=== PATIENT | male | born 1975 | race Caucasian/White ===

== ENCOUNTER → 2017-01-24 | Outpatient (CLI) | payer MEDICARE, OTHER ==
[2017-01-24 15:10] LABS: Basophils # (A) 0.1 k/uL (0-0.2); Basophils % (A) 1 %; CH 30.3; Eosinophils # (A) 0.2 k/uL (0-0.7); Eosinophils % (A) 2 %; HCT 51.8 % (39.0-53.0); HDW 2.53; HGB 16.6 gm/dL (13.0-17.5); Luc # (Auto) 0.13; Luc % (Auto) 2; Lymphocytes % (A) 27 %; MCH 29.6 pg (25.0-35.0); MCHC 32.1 g/dL (31.0-37.0); MCV 92.3 fL (80.0-100.0); Mean Platelet Volume 7.1; Monocytes # (A) 0.4 k/uL (0-1.0); Monocytes % (A) 5 %; Neutrophils # (A) 4.7 k/uL (1.3-7.7); Neutrophils % (A) 64 %; RBC 5.61 m/uL (4.30-5.90); RDW 13.5 % (11.5-15.5); WBC 7.4 k/uL (3.8-10.6); WBC (Perox) 7.36
[2017-01-24 15:18] LABS: ALT 65 U/L (21-72); AST 37 U/L (17-59); Alkaline Phosphatase 66 U/L (38-126); Anion Gap 10 mmol/L; Blood Urea Nitrogen 10 mg/dL (9-20); Calcium 9.8 mg/dL (8.4-10.2); Carbon Dioxide 29 mmol/L (22-30); Chloride 101 mmol/L (98-107); Cholesterol 177 mg/dL (<200); Glucose 304 mg/dL (74-99); HDL Cholesterol 35 mg/dL (40-60); Non-African American GFR(MDRD) >60 (>60 ml/min/1.73 sqM); Potassium 4.8 mmol/L (3.5-5.1); Sodium 140 mmol/L (137-145); Total Bilirubin 0.8 mg/dL (0.2-1.3); Total Protein 7.4 g/dL (6.3-8.2); Triglycerides 200 mg/dL (<150)
[2017-01-24 19:49] LABS: Hemoglobin A1C 11.1 % (4.2-6.1)
== END | disposition home or self-care (01) ==
LOC: LABWHC1 14:31
PROVIDERS: ATTEND Family Medicine
DX: E78.5 Hyperlipidemia, unspecified (principal); I25.10 Atherosclerotic heart disease of native coronary artery without angina pectoris; E11.65 Type 2 diabetes mellitus with hyperglycemia
CPT/HCPCS: 36415; 80053; 80061; 83036; 84443; 85025

== ENCOUNTER → 2017-02-23 | Outpatient (CLI) | payer MEDICARE, OTHER ==
[2017-02-23 14:53] LABS: Anion Gap 11 mmol/L; Blood Urea Nitrogen 8 mg/dL (9-20); Calcium 9.7 mg/dL (8.4-10.2); Carbon Dioxide 23 mmol/L (22-30); Chloride 105 mmol/L (98-107); Glucose 316 mg/dL (74-99); Non-African American GFR(MDRD) >60 (>60 ml/min/1.73 sqM); Sodium 139 mmol/L (137-145)
[2017-02-23 15:04] LABS: Potassium 5.6 mmol/L (3.5-5.1)
== END | disposition home or self-care (01) ==
LOC: LABWHC1 14:05
PROVIDERS: ATTEND Internal Medicine
DX: I42.8 Other cardiomyopathies (principal); I50.9 Heart failure, unspecified
CPT/HCPCS: 36415; 80048; 83880

== ENCOUNTER → 2017-08-24 | Outpatient (CLI) | payer MEDICARE, OTHER ==
--- NOTE | 2017-08-24 13:39 | XR ---
EXAMINATION TYPE: XR chest 2V DATE OF EXAM: 08/24/2017 COMPARISON: Chest x-ray December 15, 2014 HISTORY: Cough for 6 weeks. TECHNIQUE: Frontal and lateral views of the chest are obtained. FINDINGS: There is no focal air space opacity, pleural effusion, or pneumothorax seen. The cardiac silhouette size is stable and upper limits of normal with single lead pacemaker/AICD. The osseous s tructures are intact. IMPRESSION: No suspicious acute pulmonary process. No significant change from prior.
== END | disposition home or self-care (01) ==
LOC: RADXRMAIN 13:16
PROVIDERS: ATTEND Family Medicine
DX: R05 Cough (principal)
CPT/HCPCS: 71020

== ENCOUNTER 2019-02-10 04:33 | Emergency (ER) | payer MEDICARE, OTHER ==
[2019-02-10 04:40] VITALS: TEMP 98.1
--- NOTE | 2019-02-10 05:03 | ED ---
URI HPI - General Chief Complaint: Upper Respiratory Infection Stated Complaint: cough, URI Time Seen by Provider: 02/10/19 04:47 Source: patient Mode of arrival: wheelchair Limitations: no limitations - History of Present Illness MD Complaint: cough, nasal congestion Onset/Timin -: days(s) Severity: moderate Consistency: constant Improves With: nothing Worsens With: nothing Associated Symptoms: rhinorrhea, nasal congestion, cough Treatments Prior to Arrival: none - Related Data Home Medications Medication Instructions Recorded Confirmed Aspirin 81 mg PO DAILY 12/15/14 12/15/14 Atorvastatin [Lipitor] 80 mg PO DAILY 12/15/14 02/10/19 INSULIN ASPART (NovoLOG) [NovoLOG] 10 unit SQ AC-TID 12/15/14 12/15/14 Insulin Detemir (Levemir) [Levemir] 35 unit SQ HS 12/15/14 12/15/14 Carvedilol [Coreg] 12.5 mg PO BID 02/10/19 02/10/19 Omeprazole 40 mg PO 02/10/19 Rivaroxaban [Xarelto] 20 mg PO DAILY 02/10/19 02/10/19 Spironolactone 50 mg PO 02/10/19 glipiZIDE [Glucotrol] 10 mg PO AC-BID 02/10/19 02/10/19 Previous Rx's Medication Instructions Recorded Albuterol Inhaler [Ventolin Hfa 1 - 2 puff INHALATION Q6HR PRN #1 02/10/19 Inhaler] inhaler Promethazine 6.25MG/5Ml [Phenergan 5 ml PO Q4HR PRN #120 ml 02/10/19 Syrup] Allergies Allergy/AdvReac Type Severity Reaction Status Date / Time amoxicillin Allergy Unknown Verified 12/15/14 11:28 Review of Systems ROS Statement: Those systems with pertinent positive or pertinent negative responses have been documented in the HPI. ROS Other: All systems not noted in ROS Statement are negative. Constitutional: Denies: fever, chills Respiratory: Reports: cough. Denies: dyspnea Cardiovascular: Denies: chest pain, palpitations, edema, syncope Gastrointestinal: Denies: abdominal pain, vomiting, diarrhea Genitourinary: Denies: dysuria Musculoskeletal: Denies: back pain Skin: Denies: rash Neurological: Denies: headache, weakness, numbness Past Medical History Past Medical History: Diabetes Mellitus, Hypertension, Myocardial Infarction ([place]) Last Myocardial Infarction Date:: 2012 History of Any Multi-Drug Resistant Organisms: None Reported Past Surgical History: AICD Additional Past Surgical History / Comment(s): AICD IMPLANTED DECEMBER/2013 AT [facility] Past Anesthesia/Blood Transfusion Reactions: No Reported Reaction Type of Cardiac Device: Permanent Pacemaker, AICD Device Placement Date:: 12/2013 Past Psychological History: No Psychological Hx Reported Smoking Status: Former smoker Past Alcohol Use History: Occasional Past Drug Use History: Marijuana General Exam Limitations: no limitations General appearance: alert, in no apparent distress Head exam: Present: atraumatic, normocephalic Eye exam: Present: normal appearance Respiratory exam: Present: normal lung sounds bilaterally. Absent: respiratory distress, wheezes, rales, rhonchi, stridor Cardiovascular Exam: Present: regular rate, normal rhythm, normal heart sounds. Absent: systolic murmur, diastolic murmur, rubs, gallop GI/Abdominal exam: Present: soft. Absent: distended, tenderness, guarding, rebound, rigid, mass Extremities exam: Present: normal inspection, normal capillary refill. Absent: pedal edema, calf tenderness Back exam: Present: normal inspection. Absent: CVA tenderness (R), CVA tenderness (L) Neurological exam: Present: alert Skin exam: Present: warm, dry, intact, normal color. Absent: rash Course Vital Signs 02/10/19 04:36 Temperature 98.1 F Pulse Rate 128 H Respiratory 22 Rate Blood Pressure 124/88 O2 Sat by Pulse 92 L Oximetry Medical Decision Making - Lab Data Result diagrams: 02/10/19 05:15 02/10/19 05:15 Lab Results 02/10/19 02/10/19 02/10/19 Range/Units 05:15 05:15 05:15 WBC 13.1 H (3.8-10.6) k/uL RBC 5.61 (4.30-5.90) m/uL Hgb 16.1 (13.0-17.5) gm/dL Hct 49.3 (39.0-53.0) % MCV 88.0 (80.0-100.0) fL MCH 28.7 (25.0-35.0) pg MCHC 32.6 (31.0-37.0) g/dL RDW 12.5 (11.5-15.5) % Plt Count 281 (150-450) k/uL Neutrophils % 73 % Lymphocytes % 14 % Monocytes % 7 % Eosinophils % 3 % Basophils % 1 % Neutrophils # 9.6 H (1.3-7.7) k/uL Lymphocytes # 1.8 (1.0-4.8) k/uL Monocytes # 1.0 (0-1.0) k/uL Eosinophils # 0.4 (0-0.7) k/uL Basophils # 0.1 (0-0.2) k/uL D-Dimer 0.19 (<0.60) mg/L FEU Sodium 134 L (137-145) mmol/L Potassium 4.0 (3.5-5.1) mmol/L Chloride 100 (98-107) mmol/L Carbon Dioxide 23 (22-30) mmol/L Anion Gap 11 mmol/L BUN 13 (9-20) mg/dL Creatinine 0.64 L (0.66-1.25) mg/dL Est GFR (CKD-EPI)AfAm >90 (>60 ml/min/1.73 sqM) Est GFR (CKD-EPI)NonAf >90 (>60 ml/min/1.73 sqM) Glucose 299 H (74-99) mg/dL POC Glucose (mg/dL) (75-99) mg/dL POC Glu Dispensary Attendant ID Calcium 9.6 (8.4-10.2) mg/dL Total Bilirubin 1.1 (0.2-1.3) mg/dL AST 18 (17-59) U/L ALT 30 (21-72) U/L Alkaline Phosphatase 80 (38-126) U/L NT-Pro-B Natriuret Pep pg/mL Total Protein 7.1 (6.3-8.2) g/dL Albumin 4.2 (3.5-5.0) g/dL 02/10/19 02/10/19 Range/Units 05:15 06:26 WBC (3.8-10.6) k/uL RBC (4.30-5.90) m/uL Hgb (13.0-17.5) gm/dL Hct (39.0-53.0) % MCV (80.0-100.0) fL MCH (25.0-35.0) pg MCHC (31.0-37.0) g/dL RDW (11.5-15.5) % Plt Count (150-450) k/uL Neutrophils % % Lymphocytes % % Monocytes % % Eosinophils % % Basophils % % Neutrophils # (1.3-7.7) k/uL Lymphocytes # (1.0-4.8) k/uL Monocytes # (0-1.0) k/uL Eosinophils # (0-0.7) k/uL Basophils # (0-0.2) k/uL D-Dimer (<0.60) mg/L FEU Sodium (137-145) mmol/L Potassium (3.5-5.1) mmol/L Chloride (98-107) mmol/L Carbon Dioxide (22-30) mmol/L Anion Gap mmol/L BUN (9-20) mg/dL Creatinine (0.66-1.25) mg/dL Est GFR (CKD-EPI)AfAm (>60 ml/min/1.73 sqM) Est GFR (CKD-EPI)NonAf (>60 ml/min/1.73 sqM) Glucose (74-99) mg/dL POC Glucose (mg/dL) 264 H (75-99) mg/dL POC Glu Dispensary Attendant ID Maury, Davina Calcium (8.4-10.2) mg/dL Total Bilirubin (0.2-1.3) mg/dL AST (17-59) U/L ALT (21-72) U/L Alkaline Phosphatase (38-126) U/L NT-Pro-B Natriuret Pep 281 pg/mL Total Protein (6.3-8.2) g/dL Albumin (3.5-5.0) g/dL Disposition Clinical Impression: Bronchitis Disposition: HOME SELF-CARE Condition: Fair Instructions (If sedation given, give patient instructions): Acute Bronchitis (ED) Prescriptions: Promethazine 6.25MG/5Ml [Phenergan Syrup] 5 ml PO Q4HR PRN #120 ml PRN Reason: Cough Albuterol Inhaler [Ventolin Hfa Inhaler] 1 - 2 puff INHALATION Q6HR PRN #1 inhaler PRN Reason: Wheezing Is patient prescribed a controlled substance at d/c from ED?: No Referrals: Macie Nelson MD [Primary Care Provider] - 1-2 days
--- NOTE | 2019-02-10 05:32 | XR ---
EXAM: XR Chest, 2 Views CLINICAL HISTORY: Pain TECHNIQUE: Frontal and lateral views of the chest. COMPARISON: Chest x-ray dated 08/24/2017 FINDINGS: Lungs: Unremarkable. No consolidation. Pleural space: Unremarkable. No pneumothorax. Heart: Unremarkable. No cardiomegaly. Mediastinum: Unremarkable. Bones/joints: Unremarkable. Tubes, lines and devices: Single lead cardiac pacemaker/AICD, which is unchanged. IMPRESSION: No acute findings.
[2019-02-10 05:36] LABS: Basophils # (A) 0.1 k/uL (0-0.2); Basophils % (A) 1 %; Eosinophils # (A) 0.4 k/uL (0-0.7); Eosinophils % (A) 3 %; HCT 49.3 % (39.0-53.0); HGB 16.1 gm/dL (13.0-17.5); Lymphocytes # (A) 1.8 k/uL (1.0-4.8); Lymphocytes % (A) 14 %; MCH 28.7 pg (25.0-35.0); MCHC 32.6 g/dL (31.0-37.0); Mean Platelet Volume 7.3; Monocytes % (A) 7 %; Neutrophils # (A) 9.6 k/uL (1.3-7.7); Neutrophils % (A) 73 %; Platelet Count 281 k/uL (150-450); RBC 5.61 m/uL (4.30-5.90); RDW 12.5 % (11.5-15.5); WBC 13.1 k/uL (3.8-10.6)
[2019-02-10 06:03] LABS: ALT 30 U/L (21-72); AST 18 U/L (17-59); Albumin 4.2 g/dL (3.5-5.0); Alkaline Phosphatase 80 U/L (38-126); Anion Gap 11 mmol/L; Blood Urea Nitrogen 13 mg/dL (9-20); Calcium 9.6 mg/dL (8.4-10.2); Carbon Dioxide 23 mmol/L (22-30); Chloride 100 mmol/L (98-107); Glucose 299 mg/dL (74-99); Sodium 134 mmol/L (137-145); Total Bilirubin 1.1 mg/dL (0.2-1.3); Total Protein 7.1 g/dL (6.3-8.2)
[2019-02-10] MEDS ORDERED: INSULIN REGULAR 100 UNIT/ML VIAL SQ STA (06:14)
[2019-02-10] MEDS ORDERED: ALBUTEROL NEBULIZED 2.5 MG/3 ML INHALATION STA (06:14)
[2019-02-10 06:28] LABS: Glucose,Whole Blood 264 mg/dL (75-99)
[2019-02-10 06:53] VITALS: BP 103/72; PULSE 109; RESP 22
== END 2019-02-10 06:52 | disposition home or self-care (01) ==
LOC: EC 04:33
DX: J40 Bronchitis, not specified as acute or chronic (principal); E11.9 Type 2 diabetes mellitus without complications; I10 Essential (primary) hypertension; I25.2 Old myocardial infarction; Z87.891 Personal history of nicotine dependence; Z79.82 Long term (current) use of aspirin; Z79.4 Long term (current) use of insulin; Z79.01 Long term (current) use of anticoagulants; Z79.899 Other long term (current) drug therapy; Z88.0 Allergy status to penicillin; Z95.810 Presence of automatic (implantable) cardiac defibrillator
CPT/HCPCS: 36415; 71046; 80053; 83880; 85025; 85379; 99284

== ENCOUNTER → 2019-08-21 | Outpatient (CLI) | payer MEDICARE, OTHER ==
[2019-08-21 11:16] LABS: Basophils # (A) 0.1 k/uL (0-0.2); Basophils % (A) 2 %; Eosinophils # (A) 0.2 k/uL (0-0.7); Eosinophils % (A) 3 %; HCT 47.5 % (39.0-53.0); HGB 16.8 gm/dL (13.0-17.5); Lymphocytes # (A) 1.4 k/uL (1.0-4.8); Lymphocytes % (A) 19 %; MCH 32.4 pg (25.0-35.0); MCHC 35.3 g/dL (31.0-37.0); MCV 91.7 fL (80.0-100.0); Mean Platelet Volume 7.3; Monocytes # (A) 0.4 k/uL (0-1.0); Monocytes % (A) 6 %; Neutrophils % (A) 69 %; Platelet Count 246 k/uL (150-450); RBC 5.18 m/uL (4.30-5.90); RDW 12.1 % (11.5-15.5); WBC 7.3 k/uL (3.8-10.6)
[2019-08-21 16:20] LABS: African American GFR (CKD) 121.7 (60.0-200.0); Albumin 4.6 g/dL (3.80-4.90); Albumin/Globulin Ratio 2.19 (1.60-3.17); Anion Gap 10.6 mmol/L (4.00-12.00); BUN/Creat Ratio 16.67 Ratio (12.00-20.00); Carbon Dioxide 27.4 mmol/L (21.6-31.8); Chol/HDL Ratio 4.19; Globulin 2.1 g/dL (1.6-3.3); LDL Cholesterol,Calculated 62.8 mg/dL (0.0-131.0); Potassium 4.9 mmol/L (3.5-5.5); Total Bilirubin 0.6 mg/dL (0.2-1.2); Total Protein 6.7 g/dL (6.2-8.2); VLDL Calculation 23.2 mg/dL (5.00-40.00)
[2019-08-21 18:50] LABS: Hemoglobin A1C 13.1 % (4.0-6.0)
== END | disposition home or self-care (01) ==
LOC: LABWHC1 10:04
PROVIDERS: ATTEND Family Medicine
DX: E11.65 Type 2 diabetes mellitus with hyperglycemia (principal); I50.9 Heart failure, unspecified; E66.9 Obesity, unspecified
CPT/HCPCS: 36415; 80053; 80061; 82043; 82306; 82570; 83036; 84443; 85025

== ENCOUNTER → 2019-12-06 | Outpatient (CLI) | payer MEDICARE, OTHER ==
--- NOTE | 2019-12-06 09:49 | US ---
EXAMINATION TYPE: US abdomen complete DATE OF EXAM: 12/06/2019 COMPARISON: CT CLINICAL HISTORY: R11.2 nausea and vomiting. GERD, Leiden Factor V, intermittent nausea and vomiting with heartburn, on multiple medications for heart failure per patient; takes blood thinner too. EXAM MEASUREMENTS: Liver Length: 14.2 cm Gallbladder Wall: 0.2 cm CBD: 0.3 cm Spleen: 11.4 cm Right Kidney: 10.5 x 6.5 x 5.2 cm Left Kidney: 10.8 x 5.2 x 5.8 cm Pancreas: wnl is visualized Liver: There is increased echogenicity of the hepatic parenchyma with diminished visualization of th e portal triads most commonly relating to hepatic steatosis and limiting evaluation for underlying he patic masses. Gallbladder: wnl Evidence for sonographic Yen's sign: no CBD: wnl Spleen: wnl Right Kidney: No hydronephrosis or masses seen Left Kidney: No hydronephrosis or masses seen Upper IVC: wnl Abd Aorta: wnl IMPRESSION: 1. Sonographic findings most commonly related to hepatic steatosis. Correlate with liver function cassandra ts. 2. No sonographic evidence of cholelithiasis nor acute cholecystitis.
== END | disposition home or self-care (01) ==
LOC: RADUSMAIN 07:55
PROVIDERS: ATTEND Family Medicine
DX: R11.2 Nausea with vomiting, unspecified (principal)
CPT/HCPCS: 76700

== ENCOUNTER → 2020-12-26 | Outpatient (CLI) | payer MEDICARE, OTHER | END | disposition home or self-care (01) | LOC: LABWHC1 14:20 | PROVIDERS: ATTEND Family Medicine | DX: J06.9 Acute upper respiratory infection, unspecified (principal); R05 Cough | CPT/HCPCS: U0003; C9803; U0005 ==

== ENCOUNTER 2021-06-12 10:57 | Emergency (ER) | payer MEDICARE, OTHER ==
[2021-06-12 11:20] VITALS: RESP 18
[2021-06-12] MEDS ORDERED: IBUPROFEN 600 MG TAB PO STA (11:31)
--- NOTE | 2021-06-12 11:48 | ED ---
Lower Extremity Injury HPI - General Chief Complaint: Extremity Injury, Lower Stated Complaint: lt foot injury Time Seen by Provider: 06/12/21 11:24 Source: patient Mode of arrival: wheelchair Limitations: physical limitation - History of Present Illness Initial Comments: 45-year-old male presents to emergency department with a chief complaint of left ankle injury. Status occurred about one hour prior to arrival. Patient reports he was getting out of his car when he felt sudden onset of pain in the lateral malleolus of the left ankle after he suffered an inversion injury. Patient reports pain is exacerbated with weightbearing and any movement. Reports mild swelling on the left lateral malleolus but no ecchymosis or erythema at this time. Denies taking medication to leaving the symptoms. Denies any paresthesias or weakness. - Related Data Home Medications Medication Instructions Recorded Confirmed Aspirin 81 mg PO DAILY 12/15/14 12/15/14 Atorvastatin [Lipitor] 80 mg PO DAILY 12/15/14 02/10/19 INSULIN ASPART (NovoLOG) [NovoLOG] 10 unit SQ AC-TID 12/15/14 12/15/14 Insulin Detemir (Levemir) [Levemir] 35 unit SQ HS 12/15/14 12/15/14 Omeprazole 40 mg PO 02/10/19 Rivaroxaban [Xarelto] 20 mg PO DAILY 02/10/19 02/10/19 Spironolactone 50 mg PO 02/10/19 carvediloL [Coreg] 12.5 mg PO BID 02/10/19 02/10/19 glipiZIDE [Glucotrol] 10 mg PO AC-BID 02/10/19 02/10/19 Previous Rx's Medication Instructions Recorded Albuterol Inhaler (Mhu) [Ventolin 1 - 2 puff INHALATION Q6HR PRN #1 02/10/19 Hfa Inhaler (Mhu)] inhaler Promethazine 6.25MG/5Ml [Phenergan 5 ml PO Q4HR PRN #120 ml 02/10/19 Syrup] Allergies Allergy/AdvReac Type Severity Reaction Status Date / Time amoxicillin Allergy Unknown Verified 06/12/21 11:18 Review of Systems ROS Statement: Those systems with pertinent positive or pertinent negative responses have been documented in the HPI. ROS Other: All systems not noted in ROS Statement are negative. Past Medical History Past Medical History: Diabetes Mellitus, Hypertension, Myocardial Infarction ([place]) Last Myocardial Infarction Date:: 2012 History of Any Multi-Drug Resistant Organisms: None Reported Past Surgical History: AICD Additional Past Surgical History / Comment(s): AICD IMPLANTED DECEMBER/2013 AT [facility] Past Anesthesia/Blood Transfusion Reactions: No Reported Reaction Type of Cardiac Device: Permanent Pacemaker, AICD Device Placement Date:: 12/2013 Past Psychological History: No Psychological Hx Reported Smoking Status: Never smoker Past Alcohol Use History: Rare Past Drug Use History: Marijuana General Exam Limitations: physical limitation General appearance: alert, in no apparent distress Head exam: Present: atraumatic, normocephalic, normal inspection Eye exam: Present: normal appearance, PERRL Pupils: Present: normal accommodation ENT exam: Present: normal exam, normal oropharynx, mucous membranes moist Neck exam: Present: normal inspection, full ROM. Absent: tenderness Respiratory exam: Present: normal lung sounds bilaterally. Absent: respiratory distress Cardiovascular Exam: Present: regular rate, normal rhythm, normal heart sounds. Absent: systolic murmur GI/Abdominal exam: Present: soft. Absent: distended, tenderness, guarding, rebound Extremities exam: Present: tenderness (Left lateral malleolus tenderness. fifth metatarsal tenderness ), normal capillary refill, other (Palpable DP and PT bilaterally. Sensation intact in the left foot). Absent: normal inspection (Mild swelling along the left lateral malleolus), full ROM (Limited range of motion with inversion and eversion.), pedal edema, joint swelling, calf tenderness Back exam: Present: normal inspection, full ROM. Absent: tenderness Neurological exam: Present: alert, oriented X3 Psychiatric exam: Present: normal affect, normal mood Skin exam: Present: warm, dry, intact, normal color Course Vital Signs 06/12/21 11:18 Temperature 98 F Pulse Rate 99 Respiratory 18 Rate Blood Pressure 123/88 O2 Sat by Pulse 96 Oximetry Medical Decision Making - Medical Decision Making 45-year-old male presenting to the emergency department with chief complaint of left foot injury. On physical cavitation, patient has fifth metatarsal tenderness. Left lateral malleolus tenderness as well. He is otherwise neurovascularly intact. He requested ibuprofen for analgesia. He was given 600 mg. X-ray shows a mildly displaced, acute fracture of the fifth metatarsal. A posterior splint was applied with extra padding on the foot. Patient was given a prescription for crutches. He was given Tylenol 3 starter pack to go home with. They will follow-up with the clinical rehabilitation specialist. Patient was advised to avoid any weightbearing. Return parameters were thoroughly discussed the patient was understanding and agreeable. Disposition Clinical Impression: Fracture of fifth metatarsal bone of left foot Disposition: HOME SELF-CARE Condition: Stable Instructions (If sedation given, give patient instructions): Foot Fracture in Adults (ED) Additional Instructions: Follow-up with clinical rehabilitation specialist. Return to emergency department if symptoms worsen. Is patient prescribed a controlled substance at d/c from ED?: No Referrals: Ben Beltran [Primary Care Provider] - 1-2 days Dejan Castorena DO [Doctor of Osteopathic Medicine] - 1-2 days Time of Disposition: 12:49
--- NOTE | 2021-06-12 12:14 | XR ---
EXAMINATION TYPE: XR foot complete LT DATE OF EXAM: 06/12/2021 COMPARISON: NONE HISTORY: Pain TECHNIQUE: Three views are submitted. FINDINGS: The osseous structures are intact. There is a displaced fracture involving the base of the fifth m etatarsal. Hypertrophic arthropathy of the first MTP. Calcaneal spur noted. Sclerotic density in the calcaneus compatible with bone island. IMPRESSION: 1. Acute mildly displaced fracture base fifth metatarsal.
--- NOTE | 2021-06-12 12:17 | XR ---
EXAMINATION TYPE: XR ankle complete LT DATE OF EXAM: 06/12/2021 COMPARISON: NONE HISTORY: Pain FINDINGS: Three views of the ankle demonstrate a displaced fracture involving the base of the fifth metatarsal. Hypertrophic arthropathy of the first MTP. Calcaneal spur noted. Sclerotic density in the calcaneus compatible with bone island. IMPRESSION: 1. Acute mildly displaced fracture base fifth metatarsal.
[2021-06-12] MEDS ORDERED: ACET/COD 300 MG/30 MG STARTER PACK 6 TAB BTL PO STA (12:45)
[2021-06-12 13:00] VITALS: BP 132/84; PULSE 88; TEMP 97.9
== END 2021-06-12 13:00 | disposition home or self-care (01) ==
LOC: EC 10:57
DX: S92.352A Displaced fracture of fifth metatarsal bone, left foot, initial encounter for closed fracture (principal); E11.9 Type 2 diabetes mellitus without complications; I10 Essential (primary) hypertension; I25.2 Old myocardial infarction; Z79.4 Long term (current) use of insulin; Z79.899 Other long term (current) drug therapy; Z88.0 Allergy status to penicillin; X50.9XXA Other and unspecified overexertion or strenuous movements or postures, initial encounter
CPT/HCPCS: 29515; 99283

== ENCOUNTER 2021-12-20 00:20 | Inpatient (IN) | payer MEDICARE, OTHER ==
[2021-12-20] MEDS ORDERED: SODIUM CHLORIDE 0.9% 1,000 ML IV STA (01:39)
[2021-12-20] MEDS ORDERED: LEVOFLOXACIN 750MG-D5W PMX 750 MG in DEXTROSE/WATER 1 150ML.BAG IVPB STA (01:39)
--- NOTE | 2021-12-20 01:46 | ED ---
Male Urogenital HPI - General Chief complaint: Urogenital Stated complaint: Rectal Pain Time Seen by Provider: 12/20/21 00:53 Source: patient, family, RN notes reviewed Mode of arrival: ambulatory Limitations: no limitations - History of Present Illness Initial comments: This is a 46-year-old diabetic male who presents to emergency department complaining of one week of rectal pain and discomfort after urination. Patient states that this seems to be getting worse. He denies any known fever but is found to be tachycardic in triage. Denies any abdominal pain but does have some suprapubic discomfort after urination. Patient denies any diarrhea or constipation. No rectal bleeding. No nausea or vomiting. No skin rashes or lesions. No testicular pain. No penile discharge. No hematuria. No headache, no fever or chills, no changes in vision or hearing, no sore throat or difficulty with speech, no neck pain, no chest pain or shortness of breath, no numbness or tingling, no extremity pain, no skin rashes or lesions. MD Complaint: dysuria - Related Data Home Medications Medication Instructions Recorded Confirmed Aspirin 81 mg PO DAILY 12/15/14 12/15/14 Atorvastatin [Lipitor] 80 mg PO DAILY 12/15/14 02/10/19 INSULIN ASPART (NovoLOG) [NovoLOG] 10 unit SQ AC-TID 12/15/14 12/15/14 Insulin Detemir (Levemir) [Levemir] 35 unit SQ HS 12/15/14 12/15/14 Omeprazole 40 mg PO 02/10/19 Rivaroxaban [Xarelto] 20 mg PO DAILY 02/10/19 02/10/19 Spironolactone 50 mg PO 02/10/19 carvediloL [Coreg] 12.5 mg PO BID 02/10/19 02/10/19 glipiZIDE [Glucotrol] 10 mg PO AC-BID 02/10/19 02/10/19 Previous Rx's Medication Instructions Recorded Albuterol Inhaler (Mhu) [Ventolin 1 - 2 puff INHALATION Q6HR PRN #1 02/10/19 Hfa Inhaler (Mhu)] inhaler Promethazine 6.25MG/5Ml [Phenergan 5 ml PO Q4HR PRN #120 ml 02/10/19 Syrup] Allergies Allergy/AdvReac Type Severity Reaction Status Date / Time amoxicillin Allergy Unknown Verified 06/12/21 11:18 Review of Systems ROS Statement: Those systems with pertinent positive or pertinent negative responses have been documented in the HPI. ROS Other: All systems not noted in ROS Statement are negative. Past Medical History Past Medical History: Diabetes Mellitus, Hypertension, Myocardial Infarction ([place]) Last Myocardial Infarction Date:: 2012 History of Any Multi-Drug Resistant Organisms: None Reported Past Surgical History: AICD Additional Past Surgical History / Comment(s): AICD IMPLANTED DECEMBER/2013 AT [facility] Past Anesthesia/Blood Transfusion Reactions: No Reported Reaction Type of Cardiac Device: Permanent Pacemaker, AICD Device Placement Date:: 12/2013 Past Psychological History: No Psychological Hx Reported Smoking Status: Former smoker Past Alcohol Use History: Rare Past Drug Use History: Marijuana General Exam - General Exam Comments Initial Comments: Vital signs noted, patient noted to be tachycardic with a heart rate of 111 triage and 108 on my recheck. Limitations: no limitations General appearance: alert, in distress (Mild distress) Head exam: Present: atraumatic, normocephalic, normal inspection Eye exam: Present: normal appearance, PERRL, EOMI. Absent: scleral icterus, conjunctival injection, periorbital swelling ENT exam: Present: normal exam, mucous membranes moist Neck exam: Present: normal inspection. Absent: tenderness, meningismus, lymphadenopathy Respiratory exam: Present: normal lung sounds bilaterally. Absent: respiratory distress, wheezes, rales, rhonchi, stridor Cardiovascular Exam: Present: normal rhythm, bradycardia, normal heart sounds. Absent: systolic murmur, diastolic murmur, rubs, gallop, clicks GI/Abdominal exam: Present: soft, normal bowel sounds. Absent: distended, tenderness, guarding, rebound, rigid Rectal exam: Present: normal inspection, normal rectal tone, tenderness, prostate tenderness, other (Patient does have perineal tenderness as well. No evidence of perirectal abscess or hemorrhoids.) exam: Present: normal inspection, circumcision. Absent: testicular tenderness, urethral discharge, scrotal swelling Extremities exam: Present: normal inspection, full ROM, normal capillary refill. Absent: tenderness, pedal edema, joint swelling, calf tenderness Back exam: Present: normal inspection Neurological exam: Present: alert, oriented X3, CN II-XII intact Psychiatric exam: Present: normal affect, normal mood Skin exam: Present: warm, dry, intact, normal color. Absent: rash Course Vital Signs 12/20/21 00:22 Temperature 97.8 F Pulse Rate 111 H Respiratory 20 Rate Blood Pressure 127/85 O2 Sat by Pulse 96 Oximetry - Reevaluation(s) Reevaluation #1: 12/20/21 02:46 Medical record is reviewed Symptoms are essentially unchanged. Patient blood pressure is normal. Awaiting CT results. Patient does meet criteria for sepsis for tachycardia and leukocytosis. Patient is informed of results and questions answered Patient in no distress Reevaluation #2: 12/20/21 02:47 Patient's blood sugar is 300. We will order a second fluid bolus. Procedures - Sepsis Sepsis Focused Exam #1 Time Sepsis Criteria Met: 03:30 Sepsis Focused Exam Complete: Yes Vital Signs & RN Notes Reviewed: Yes Capillary Refill: None: Fingers, Toes Peripheral Pulses: Absent: Radial (R), Radial (L), Posterior Tibialis (R), Posterior Tibialis (L), Dorsalis Pedis (R), Dorsalis Pedis (L) Skin Color: Normal for Patient Respiratory Exam: normal lung sounds Cardiovascular Exam: tachycardia Medical Decision Making - Medical Decision Making Patient is a known diabetic. Patient presents with rectal pain and postvoiding discomfort for one week. Tachycardia with no known fever. Patient indicates to me that since COVID-19 his pain less attention to his personal health. Urinalysis, gonorrhea, chlamydia testing are pending at the time of admission. Patient reevaluated prior to admission and is complaining of 8 out of 10 pain. Pain medication ordered. Metronidazole added onto the levofloxacin. - Lab Data Result diagrams: 12/20/21 02:09 12/20/21 02:09 Lab Results 12/20/21 12/20/21 12/20/21 Range/Units 02:09 02:09 02:09 WBC 13.2 H (3.8-10.6) k/uL RBC 4.93 (4.30-5.90) m/uL Hgb 14.7 (13.0-17.5) gm/dL Hct 44.7 (39.0-53.0) % MCV 90.6 (80.0-100.0) fL MCH 29.8 (25.0-35.0) pg MCHC 32.9 (31.0-37.0) g/dL RDW 12.7 (11.5-15.5) % Plt Count 321 (150-450) k/uL MPV 7.9 Neutrophils % 72 % Lymphocytes % 18 % Monocytes % 6 % Eosinophils % 2 % Basophils % 1 % Neutrophils # 9.6 H (1.3-7.7) k/uL Lymphocytes # 2.4 (1.0-4.8) k/uL Monocytes # 0.8 (0-1.0) k/uL Eosinophils # 0.3 (0-0.7) k/uL Basophils # 0.1 (0-0.2) k/uL Sodium 132 L (137-145) mmol/L Potassium 4.3 (3.5-5.1) mmol/L Chloride 95 L (98-107) mmol/L Carbon Dioxide 27 (22-30) mmol/L Anion Gap 10 mmol/L BUN 16 (9-20) mg/dL Creatinine 0.83 (0.66-1.25) mg/dL Est GFR (CKD-EPI)AfAm >90 (>60 ml/min/1.73 sqM) Est GFR (CKD-EPI)NonAf >90 (>60 ml/min/1.73 sqM) Glucose 343 H (74-99) mg/dL POC Glucose (mg/dL) (75-99) mg/dL POC Glu Nicker And Breaker ID Plasma Lactic Acid Ben 1.4 (0.7-2.0) mmol/L Calcium 9.1 (8.4-10.2) mg/dL Total Bilirubin 0.7 (0.2-1.3) mg/dL AST 14 L (17-59) U/L ALT 15 (4-49) U/L Alkaline Phosphatase 70 (38-126) U/L C-Reactive Protein 1.4 H (<1.0) mg/dL Total Protein 7.1 (6.3-8.2) g/dL Albumin 4.0 (3.5-5.0) g/dL Urine Color Urine Appearance (Clear) Urine pH (5.0-8.0) Ur Specific [place] (1.001-1.035) Urine Protein (Negative) Urine Glucose (UA) (Negative) Urine Ketones (Negative) Urine Blood (Negative) Urine Nitrite (Negative) Urine Bilirubin (Negative) Urine Urobilinogen (<2.0) mg/dL Ur Leukocyte Esterase (Negative) 12/20/21 12/20/21 Range/Units 02:14 02:58 WBC (3.8-10.6) k/uL RBC (4.30-5.90) m/uL Hgb (13.0-17.5) gm/dL Hct (39.0-53.0) % MCV (80.0-100.0) fL MCH (25.0-35.0) pg MCHC (31.0-37.0) g/dL RDW (11.5-15.5) % Plt Count (150-450) k/uL MPV Neutrophils % % Lymphocytes % % Monocytes % % Eosinophils % % Basophils % % Neutrophils # (1.3-7.7) k/uL Lymphocytes # (1.0-4.8) k/uL Monocytes # (0-1.0) k/uL Eosinophils # (0-0.7) k/uL Basophils # (0-0.2) k/uL Sodium (137-145) mmol/L Potassium (3.5-5.1) mmol/L Chloride (98-107) mmol/L Carbon Dioxide (22-30) mmol/L Anion Gap mmol/L BUN (9-20) mg/dL Creatinine (0.66-1.25) mg/dL Est GFR (CKD-EPI)AfAm (>60 ml/min/1.73 sqM) Est GFR (CKD-EPI)NonAf (>60 ml/min/1.73 sqM) Glucose (74-99) mg/dL POC Glucose (mg/dL) 315 H (75-99) mg/dL POC Glu Nicker And Breaker Prashanth Kelsey Plasma Lactic Acid Ben (0.7-2.0) mmol/L Calcium (8.4-10.2) mg/dL Total Bilirubin (0.2-1.3) mg/dL AST (17-59) U/L ALT (4-49) U/L Alkaline Phosphatase (38-126) U/L C-Reactive Protein (<1.0) mg/dL Total Protein (6.3-8.2) g/dL Albumin (3.5-5.0) g/dL Urine Color Yellow Urine Appearance Clear (Clear) Urine pH 6.0 (5.0-8.0) Ur Specific [place] 1.026 (1.001-1.035) Urine Protein Negative (Negative) Urine Glucose (UA) 4+ H (Negative) Urine Ketones Trace H (Negative) Urine Blood Negative (Negative) Urine Nitrite Negative (Negative) Urine Bilirubin Negative (Negative) Urine Urobilinogen <2.0 (<2.0) mg/dL Ur Leukocyte Esterase Negative (Negative) Critical Care Time Critical Care Time: Yes (Reevaluation of the patient's response to treatment. Reevaluation after fl) Total Critical Care Time: 35 Critical Care Time: 35 Disposition Clinical Impression: Prostate abscess, Sepsis, Uncontrolled diabetes mellitus Disposition: ADMITTED IP TO THIS HOSP Condition: Fair Referrals: Ben Beltran [Primary Care Provider] - 1-2 days Time of Disposition: 03:37 Decision to Admit Reason: Admit from EC Decision Time: 03:37
[2021-12-20 02:16] LABS: Glucose,Whole Blood 315 mg/dL (75-99)
[2021-12-20 02:27] LABS: Basophils # (A) 0.1 k/uL (0-0.2); Basophils % (A) 1 %; Eosinophils # (A) 0.3 k/uL (0-0.7); Eosinophils % (A) 2 %; HCT 44.7 % (39.0-53.0); HGB 14.7 gm/dL (13.0-17.5); Lymphocytes # (A) 2.4 k/uL (1.0-4.8); Lymphocytes % (A) 18 %; MCH 29.8 pg (25.0-35.0); MCHC 32.9 g/dL (31.0-37.0); MCV 90.6 fL (80.0-100.0); Mean Platelet Volume 7.9; Monocytes # (A) 0.8 k/uL (0-1.0); Monocytes % (A) 6 %; Neutrophils # (A) 9.6 k/uL (1.3-7.7); Neutrophils % (A) 72 %; Platelet Count 321 k/uL (150-450); RBC 4.93 m/uL (4.30-5.90); RDW 12.7 % (11.5-15.5); WBC 13.2 k/uL (3.8-10.6)
[2021-12-20 02:28] LABS: ALT 15 U/L (4-49); AST 14 U/L (17-59); African American GFR (CKD) >90 (>60 ml/min/1.73 sqM); Alkaline Phosphatase 70 U/L (38-126); Anion Gap 10 mmol/L; Blood Urea Nitrogen 16 mg/dL (9-20); C Reactive Protein 1.4 mg/dL (<1.0); Calcium 9.1 mg/dL (8.4-10.2); Carbon Dioxide 27 mmol/L (22-30); Chloride 95 mmol/L (98-107); Glucose 343 mg/dL (74-99); Non-African American GFR(CKD) >90 (>60 ml/min/1.73 sqM); Potassium 4.3 mmol/L (3.5-5.1); Sodium 132 mmol/L (137-145); Total Bilirubin 0.7 mg/dL (0.2-1.3); Total Protein 7.1 g/dL (6.3-8.2)
[2021-12-20] MEDS ORDERED: SODIUM CHLORIDE 0.9% 1,000 ML IV ONE (02:46)
[2021-12-20 03:10] LABS: Appearance,Urine Clear (Clear); Bilirubin,Urine Negative (Negative); Blood,Urine Negative (Negative); Color,Urine Yellow; Glucose,Urine (UA) 4+ (Negative); Ketones,Urine Trace (Negative); Leukocyte Esterase,Urine Negative (Negative); Nitrite,Urine Negative (Negative); Protein,Urine Negative (Negative); Specific Gravity,Urine 1.026 (1.001-1.035); Urobilinogen,Urine <2.0 mg/dL (<2.0)
--- NOTE | 2021-12-20 03:25 | CT ---
EXAMINATION TYPE: CT abdomen pelvis w con DATE OF EXAM: 12/20/2021 COMPARISON: 11/11/2010 HISTORY: rectal pain. no prior CT on PACS CT DLP: 1814.8 mGycm Automated exposure control for dose reduction was used. CONTRAST: Performed with IV Contrast, patient injected with 100ml mL of Isovue 300. Images obtained from the diaphragm to the floor of the pelvis with IV contrast. Lung bases are clear of infiltrate. There is no pleural effusion. Heart size is normal. There is no p ericardial effusion. Liver spleen and stomach pancreas and gallbladder appear intact. The bile ducts are not dilated. There is no adrenal mass. Kidneys show satisfactory contrast opacification. There is no hydronephrosi s. Ureters are not dilated. There is no retroperitoneal adenopathy. Delayed images show normal renal excretion. Bladder distends smoothly. There is no inguinal hernia. There is no free fluid in the pelv is. There is some 2 cm area of low attenuation at the base of the prostate gland in the posterior ure thral region. This appears somewhat cystic. Appendix is posterior and appears normal. There is no mesenteric edema. There is no ascites or free a ir. No evidence of a bowel obstruction. The lumbar vertebra show normal alignment. There is calcified posterior disc herniation at L5-S1. No lumbar compression fracture. Bony pelvis is intact. Hip joints are intact. IMPRESSION: Possible cystic mass at the base of the prostate gland in the region of posterior urethra. Consider u nusual prostatic cyst or urethral diverticulum. This is a change compared to old exam. Normal appendix.
[2021-12-20] MEDS ORDERED: metroNIDAZOLE-NS PMX 500 MG in SALINE 1 100ML.BAG IVPB STA (03:27)
[2021-12-20] MEDS ORDERED: HYDROmorphone 1 MG/ML 1 ML SYRINGE IVP STA (03:36)
[2021-12-20] MEDS ORDERED: ONDANSETRON 4 MG/2 ML VIAL IVP STA (03:36)
[2021-12-20] MEDS ORDERED: NALOXONE 0.4 MG/ML 1 ML VIAL IV PRN (03:38)
[2021-12-20] MEDS ORDERED: ACETAMINOPHEN TAB 325 MG TAB PO PRN (03:38)
[2021-12-20] MEDS ORDERED: HYDROmorphone 0.5 MG/0.5 ML SYRINGE IVP PRN (03:38)
[2021-12-20] MEDS ORDERED: ONDANSETRON 4 MG/2 ML VIAL IVP PRN (03:38)
[2021-12-20] MEDS: SODIUM CHLORIDE 0.9% 1,000 ML IV SCH ×3 (04:00→17:36)
--- NOTE | 2021-12-20 04:05 | P.HPIM ---
History of Present Illness H&P Date: 12/20/21 The patient is a 46-year-old male with a PMH of coronary artery disease status post ID, systolic CHF with EF less than 15% status post AICD placement, type II DM, hypertension, and hyperlipidemia who presents to the emergency room with complaints of dysuria and pelvic pain. The patient reports mid and and end stream dysuria along with pelvic pain worsened with sitting, that has gradually worsened over the past 1 week. He denies any history of such symptoms. Reports a remote history of single episode of UTI in his teenage years. Denied history of STI's. Denied instrumentation of his system. Reports pain is 7 out of 10 at the time of interview. Denied penile discharge. Denied fever, chills, abdominal pain, diarrhea. Also denied chest pain, shortness of breath, nausea, vomiting. Vitals upon presentation were notable for pulse of 111. CT abdomen and pelvis revealed a possible cystic mass at the base of the prostate gland in the region of the posterior urethra. Laboratory evaluation was remarkable for leukocytosis of 13.2, sodium 132, chloride 95, glucose 343, lactic acid 1.4, and UA remarkable for 4+ glucose and trace ketones. Review of systems: Pertinent positives and negatives as discussed in HPI, a complete review of systems was performed and all other systems are negative. Physical examination: General: non toxic, no distress, appears at stated age, obese Derm: no unusual rashes/lesions no unusual ecchymoses, warm, dry Head: atraumatic, normocephalic, symmetric Eyes: EOMI, no lid lag, anicteric sclera, pupils equal round reactive to light ENT: Nose and ears atraumatic, no thrush, no pharyngeal erythema Neck: No thyromegaly, no cervical lymphadenopathy, trachea midline, supple Mouth: no lip lesion, mucus membranes moist Cardiovascular: S1S2 reg, no murmur, positive posterior tibial pulse bilateral, no edema, capillary refill less than 2 seconds Lungs: CTA bilateral, no rhonchi, no rales , no accessory muscle use Abdominal: soft, nontender to palpation, no guarding, no appreciable organomegaly, normal bowel sounds Ext: no gross muscle atrophy, muscle strength 5 out of 5 in all 4 extremities grossly, no contractures, Neuro: CN II-XI grossly intact, light touch intact all 4 extremities, finger to nose within normal limits, Psych: Alert, oriented, appropriate affect : No penile or scrotal rashes or overlying skin abnormalities noted Assessment/plan Sepsis secondary to acute prostatitis, possible abscess -Continue with IV antibiotics with Levaquin and Flagyl for now -Urology consult -IV fluids -Pain control Uncontrolled type II DM with hyperglycemia -Check A1c -Insulin sliding scale blood glucose monitoring -Levemir 10 units daily at bedtime Hyponatremia, likely syndrome in setting of hyperglycemia -Continue with above management Chronic conditions: CAD, chronic CHF, hypertension, hyperlipidemia -Continue with home meds DVT prophylaxis -Heparin The patient is admitted with an anticipated greater than 2 midnight stay for evaluation of sepsis secondary to prostatitis. CODE STATUS: Full Code Discussed with: Patient Anticipated discharge date: 12/[address]: Home Past Medical History Past Medical History: Diabetes Mellitus, Hypertension, Myocardial Infarction (ID) Last Myocardial Infarction Date:: 2012 History of Any Multi-Drug Resistant Organisms: None Reported Past Surgical History: AICD Additional Past Surgical History / Comment(s): AICD IMPLANTED DECEMBER/2013 AT [facility] Past Anesthesia/Blood Transfusion Reactions: No Reported Reaction Type of Cardiac Device: Permanent Pacemaker, AICD Device Placement Date:: 12/2013 Past Psychological History: No Psychological Hx Reported Smoking Status: Former smoker Past Alcohol Use History: Rare Past Drug Use History: Marijuana - Past Family History Father Additional Family Medical History / Comment(s): BPH Medications and Allergies Home Medications Medication Instructions Recorded Confirmed Type Aspirin 81 mg PO DAILY 12/15/14 12/15/14 History Atorvastatin [Lipitor] 80 mg PO DAILY 12/15/14 02/10/19 History INSULIN ASPART (NovoLOG) [NovoLOG] 10 unit SQ AC-TID 12/15/14 12/15/14 History Insulin Detemir (Levemir) [Levemir] 35 unit SQ HS 12/15/14 12/15/14 History Albuterol Inhaler (Mhu) [Ventolin 1 - 2 puff INHALATION Q6HR PRN #1 02/10/19 Rx Hfa Inhaler (Mhu)] inhaler Omeprazole 40 mg PO 02/10/19 History Promethazine 6.25MG/5Ml [Phenergan 5 ml PO Q4HR PRN #120 ml 02/10/19 Rx Syrup] Rivaroxaban [Xarelto] 20 mg PO DAILY 02/10/19 02/10/19 History Spironolactone 50 mg PO 02/10/19 History carvediloL [Coreg] 12.5 mg PO BID 02/10/19 02/10/19 History glipiZIDE [Glucotrol] 10 mg PO AC-BID 02/10/19 02/10/19 History Allergies Allergy/AdvReac Type Severity Reaction Status Date / Time amoxicillin Allergy Unknown Verified 06/12/21 11:18 Physical Exam Vitals: Vital Signs Temp Pulse Resp BP Pulse Ox 12/20/21 00:22 97.8 F 111 H 20 127/85 96 Intake and Output 12/19/21 12/19/21 12/20/21 14:59 22:59 06:59 Other: Weight 102.058 kg Results CBC & Chem 7: 12/20/21 02:09 12/20/21 02:09 Labs: Abnormal Lab Results - Last 24 Hours (Table) 12/20/21 12/20/21 12/20/21 Range/Units 02:09 02:09 02:14 WBC 13.2 H (3.8-10.6) k/uL Neutrophils # 9.6 H (1.3-7.7) k/uL Sodium 132 L (137-145) mmol/L Chloride 95 L (98-107) mmol/L Glucose 343 H (74-99) mg/dL POC Glucose (mg/dL) 315 H (75-99) mg/dL AST 14 L (17-59) U/L C-Reactive Protein 1.4 H (<1.0) mg/dL Urine Glucose (UA) (Negative) Urine Ketones (Negative) 12/20/21 Range/Units 02:58 WBC (3.8-10.6) k/uL Neutrophils # (1.3-7.7) k/uL Sodium (137-145) mmol/L Chloride (98-107) mmol/L Glucose (74-99) mg/dL POC Glucose (mg/dL) (75-99) mg/dL AST (17-59) U/L C-Reactive Protein (<1.0) mg/dL Urine Glucose (UA) 4+ H (Negative) Urine Ketones Trace H (Negative)
[2021-12-20] MEDS: HYDROmorphone 1 MG/ML 1 ML SYRINGE IVP PRN ×5 (06:10→23:26)
[2021-12-20 06:48] LABS: Glucose,Whole Blood 263 mg/dL (75-99)
[2021-12-20] MEDS ORDERED: HEPARIN SODIUM,PORCINE/PF 5,000 UNIT/0.5 ML SYRINGE SQ SCH (08:00)
[2021-12-20] MEDS: INSULIN ASPART (NovoLOG) 100 UNIT/ML VIAL SQ SCH ×4 (08:01→21:04)
[2021-12-20 11:36] LABS: Glucose,Whole Blood 245 mg/dL (75-99)
--- NOTE | 2021-12-20 11:45 | P.GSCN ---
History of Present Illness Consult date: 12/20/21 Reason for Consult: Perineal pain Requesting physician: Sunita Long History of present illness: The patient is a 46-year-old white male whose urologic history is significant only for a single childhood UTI. Several years ago, he did have a perineal infection which drained spontaneously. Approximately 1 week ago, he experienced perineal discomfort when sitting on a hard chair. This progressed such that he experienced discomfort while sitting on any surface, and he also began to experience diminished urinary stream, dysuria, and urinary hesitancy. As his symptoms progressed, he began to experience constant perineal discomfort. Review of Systems - Constitutional Denies chills, Denies fever - Gastrointestinal Reports nausea, Denies vomiting - Genitourinary Reports dysuria, Reports urinary hesitancy, Denies hematuria Past Medical History Past Medical History: Diabetes Mellitus, Hypertension, Myocardial Infarction (HI), Neurologic Disorder Last Myocardial Infarction Date:: 2012 History of Any Multi-Drug Resistant Organisms: None Reported Past Surgical History: AICD Additional Past Surgical History / Comment(s): AICD IMPLANTED DECEMBER/[address] [facility] Past Anesthesia/Blood Transfusion Reactions: No Reported Reaction Type of Cardiac Device: Permanent Pacemaker, AICD Device Placement Date:: 12/2013 Past Psychological History: No Psychological Hx Reported Smoking Status: Former smoker Past Alcohol Use History: Rare Past Drug Use History: Marijuana - Past Family History Father Additional Family Medical History / Comment(s): BPH Medications and Allergies Home Medications Medication Instructions Recorded Confirmed Type Atorvastatin [Lipitor] 80 mg PO DAILY 12/15/14 02/10/19 History Insulin Detemir (Levemir) [Levemir] 35 unit SQ HS 12/15/14 12/15/14 History Omeprazole 40 mg PO 02/10/19 History Rivaroxaban [Xarelto] 20 mg PO DAILY 02/10/19 02/10/19 History Spironolactone 50 mg PO 02/10/19 History carvediloL [Coreg] 12.5 mg PO BID 02/10/19 02/10/19 History glipiZIDE [Glucotrol] 10 mg PO AC-BID 02/10/19 02/10/19 History metFORMIN HCL [Glucophage] 1,000 mg PO BID-W/MEALS 12/20/21 12/20/21 History Allergies Allergy/AdvReac Type Severity Reaction Status Date / Time amoxicillin Allergy Unknown Verified 12/20/21 11:26 Surgical - Exam Vital Signs Temp Pulse Resp BP Pulse Ox 97.8 F 111 H 20 127/85 96 12/20/21 00:22 12/20/21 00:22 12/20/21 00:22 12/20/21 00:22 12/20/21 00:22 - General well developed, well nourished, no distress - Respiratory normal respiratory effort - Abdomen Abdomen: soft, tender (Mild right lower quadrant and suprapubic tenderness), no guarding, no rigid, no rebound - Genitourinary normal penis with no external lesions, testicles non-tender, other (A left perineal skin depression is seen, likely due to a prior abscess. However, there is currently no erythema, fluctuance, or drainage.) - Rectum Rectum: normal sphincter tone, no masses, other (Prostate mildly enlarged, smooth, very tender to palpation) - Psychiatric oriented to time, oriented to person, oriented to place, speech is normal, memory intact Results - Labs 12/20/21 02:09 12/20/21 02:09 Abnormal Lab Results - Last 24 Hours (Table) 12/20/21 12/20/21 12/20/21 Range/Units 02:09 02:09 02:14 WBC 13.2 H (3.8-10.6) k/uL Neutrophils # 9.6 H (1.3-7.7) k/uL APTT (22.0-30.0) sec Sodium 132 L (137-145) mmol/L Chloride 95 L (98-107) mmol/L Glucose 343 H (74-99) mg/dL POC Glucose (mg/dL) 315 H (75-99) mg/dL AST 14 L (17-59) U/L C-Reactive Protein 1.4 H (<1.0) mg/dL Urine Glucose (UA) (Negative) Urine Ketones (Negative) 12/20/21 12/20/21 12/20/21 Range/Units 02:58 04:05 06:46 WBC (3.8-10.6) k/uL Neutrophils # (1.3-7.7) k/uL APTT 31.1 H (22.0-30.0) sec Sodium (137-145) mmol/L Chloride (98-107) mmol/L Glucose (74-99) mg/dL POC Glucose (mg/dL) 263 H (75-99) mg/dL AST (17-59) U/L C-Reactive Protein (<1.0) mg/dL Urine Glucose (UA) 4+ H (Negative) Urine Ketones Trace H (Negative) Diabetes panel 12/20/21 Range/Units 02:09 Sodium 132 L (137-145) mmol/L Potassium 4.3 (3.5-5.1) mmol/L Chloride 95 L (98-107) mmol/L Carbon Dioxide 27 (22-30) mmol/L BUN 16 (9-20) mg/dL Creatinine 0.83 (0.66-1.25) mg/dL Glucose 343 H (74-99) mg/dL Calcium 9.1 (8.4-10.2) mg/dL AST 14 L (17-59) U/L ALT 15 (4-49) U/L Alkaline Phosphatase 70 (38-126) U/L Total Protein 7.1 (6.3-8.2) g/dL Albumin 4.0 (3.5-5.0) g/dL Calcium panel 12/20/21 Range/Units 02:09 Calcium 9.1 (8.4-10.2) mg/dL Albumin 4.0 (3.5-5.0) g/dL Pituitary panel 12/20/21 Range/Units 02:09 Sodium 132 L (137-145) mmol/L Potassium 4.3 (3.5-5.1) mmol/L Chloride 95 L (98-107) mmol/L Carbon Dioxide 27 (22-30) mmol/L BUN 16 (9-20) mg/dL Creatinine 0.83 (0.66-1.25) mg/dL Glucose 343 H (74-99) mg/dL Calcium 9.1 (8.4-10.2) mg/dL Adrenal panel 12/20/21 Range/Units 02:09 Sodium 132 L (137-145) mmol/L Potassium 4.3 (3.5-5.1) mmol/L Chloride 95 L (98-107) mmol/L Carbon Dioxide 27 (22-30) mmol/L BUN 16 (9-20) mg/dL Creatinine 0.83 (0.66-1.25) mg/dL Glucose 343 H (74-99) mg/dL Calcium 9.1 (8.4-10.2) mg/dL Total Bilirubin 0.7 (0.2-1.3) mg/dL AST 14 L (17-59) U/L ALT 15 (4-49) U/L Alkaline Phosphatase 70 (38-126) U/L Total Protein 7.1 (6.3-8.2) g/dL Albumin 4.0 (3.5-5.0) g/dL - Imaging CT scan - pelvis: report reviewed, image reviewed Assessment and Plan (1) Acute prostatitis Current Visit: Yes Status: Acute Code(s): N41.0 - ACUTE PROSTATITIS SNOMED Code(s): 94977499 Plan: Based on the patient's symptomatology, examination, and CT scan findings I suspect he has acute prostatitis or a prostatic abscess. He has received a single dose of Levaquin but is currently receiving only Flagyl, which does not cover urinary pathogens. Urinalysis is negative, and therefore a pathogen will not be identified unless blood cultures are positive. In the meantime, I would suggest that he be treated with broad-spectrum antibiotics to cover urinary pathogens. The postvoid residual will be checked. If he is found to be in urinary retention, he may require placement of a suprapubic cystostomy tube. If he fails to respond to antibiotic therapy, prostate ultrasound and/or cystoscopy will be considered. Time with Patient: Greater than 30
[2021-12-20] MEDS: metroNIDAZOLE-NS PMX 500 MG in SALINE 1 100ML.BAG IVPB SCH ×3 (12:20→23:30)
[2021-12-20] MEDS: ONDANSETRON 4 MG/2 ML VIAL IVP PRN (15:42)
[2021-12-20 16:43] LABS: Glucose,Whole Blood 235 mg/dL (75-99)
[2021-12-20] MEDS: carvediloL 12.5 MG TAB PO SCH (17:35)
[2021-12-20 20:06] LABS: Glucose,Whole Blood 261 mg/dL (75-99)
[2021-12-20] MEDS ORDERED: INSULIN DETEMIR (LEVEMIR) 100 UNIT/ML SYR SQ SCH (21:00)
[2021-12-20] MEDS: ATORVASTATIN 80 MG TAB PO SCH (21:04)
[2021-12-20] MEDS: INSULIN DETEMIR (LEVEMIR) 100 UNIT/ML SYR SQ SCH (21:04)
[2021-12-20] MEDS: PANTOPRAZOLE 40 MG TABLET PO SCH (21:05)
[2021-12-20] MEDS: LEVOFLOXACIN 500MG-D5W PMX 500 MG in DEXTROSE/WATER 1 100ML.BAG IVPB SCH (21:05)
[2021-12-21 02:12] LABS: Glucose,Whole Blood 213 mg/dL (75-99)
[2021-12-21] MEDS: HYDROmorphone 1 MG/ML 1 ML SYRINGE IVP PRN ×3 (02:26→14:34)
[2021-12-21] MEDS: metroNIDAZOLE-NS PMX 500 MG in SALINE 1 100ML.BAG IVPB SCH ×2 (05:06→10:59)
[2021-12-21] MEDS: SODIUM CHLORIDE 0.9% 1,000 ML IV SCH ×2 (06:26→16:43)
[2021-12-21 07:10] LABS: Glucose,Whole Blood 224 mg/dL (75-99)
[2021-12-21] MEDS: ONDANSETRON 4 MG/2 ML VIAL IVP PRN ×3 (07:37→23:42)
[2021-12-21] MEDS: SPIRONOLACTONE 25 MG TAB PO SCH (08:19)
[2021-12-21] MEDS: INSULIN ASPART (NovoLOG) 100 UNIT/ML VIAL SQ SCH ×4 (08:19→20:52)
[2021-12-21] MEDS: carvediloL 12.5 MG TAB PO SCH ×2 (08:20→17:53)
[2021-12-21 09:30] LABS: Basophils # (A) 0.03 X 10*3/uL (0.00-0.10); Basophils % (A) 0.3 %; Eosinophils # (A) 0.27 X 10*3/uL (0.04-0.35); Eosinophils % (A) 2.5 %; HCT 40.2 % (39.6-50.0); HGB 12.4 g/dL (13.0-17.0); Immature Grans, Automated 0.6 %; Lymphocytes # (A) 1.69 X 10*3/uL (0.90-5.00); Lymphocytes % (A) 15.6 %; MCH 28.9 pg (27.0-32.0); MCHC 30.8 g/dL (32.0-37.0); MCV 93.7 fL (80.0-97.0); Mean Platelet Volume 10.7 fL (9.5-12.2); Monocytes # (A) 0.96 X 10*3/uL (0.20-1.00); Monocytes % (A) 8.8 %; NRBC Per 100 WBC 0 /100 WBCS (0.0-0.0); Neutrophils # (A) 7.85 X 10*3/uL (1.80-7.70); Neutrophils % (A) 72.2 %; Platelet Count 250 X 10*3/uL (140-440); RBC 4.29 X 10*6/uL (4.40-5.60); RDW 12.4 % (11.5-14.5); WBC 10.86 X 10*3/uL (4.50-10.00)
[2021-12-21 09:32] LABS: INR 1.01 (0.90-1.11); Prothrombin Time 11.4 sec (9.9-11.9)
--- NOTE | 2021-12-21 10:39 | P.PN ---
Subjective Progress Note Date: 12/21/21 Patient reports his pain has improved. It is controlled with pain medication. He denies dysuria. Gen: awake, alert HEENT: normocephalic, atraumatic, good hearing acuity, moist mucous membranes Resp: good air exchange, breathing comfortably with no accessory muscle use CVS: good distal perfusion x 4, GI: soft, NTTP, ND : no SPT, no CVAT, almodovar catheter is present MSK: no pitting edema, no clubbing Neuro: non-focal, moving all extremities Psych: cooperative, euthymic mood Assessment/plan: Sepsis secondary to acute prostatitis, possible abscess -Continue with IV antibiotics with Levaquin and Flagyl for now -Urology consult -IV fluids -Pain control Uncontrolled type II DM with hyperglycemia -Check A1c -Insulin sliding scale blood glucose monitoring -Levemir 10 units daily at bedtime Hyponatremia, likely pseudo in setting of hyperglycemia -Continue with above management CAD Chronic Systolic CHF, EF < 15% Hypertension Hyperlipidemia -Continue with home meds DVT prophylaxis with Heparin TID CODE STATUS: Full Code Anticipated discharge place: Home Objective - Vital Signs Vital signs: Vital Signs Temp 98.1 F 12/21/21 07:45 Pulse 83 12/21/21 07:45 Resp 15 12/21/21 07:45 BP 102/69 12/21/21 07:45 Pulse Ox 94 L 12/21/21 07:45 Intake & Output 12/20/21 12/21/21 12/21/21 18:59 06:59 18:59 Output Total 757 Balance -757 Output: Post Void Residual 757 Other: Voiding Method Toilet Urinal Toilet Urinal # Voids 3 4 - Labs CBC & Chem 7: 12/21/21 04:27 12/20/21 02:09 Labs: Abnormal Lab Results - Last 24 Hours (Table) 12/20/21 12/20/21 12/20/21 Range/Units 02:09 11:34 16:41 WBC (4.50-10.00) X 10*3/uL RBC (4.40-5.60) X 10*6/uL Hgb (13.0-17.0) g/dL MCHC (32.0-37.0) g/dL Immature Gran # (0.00-0.04) X 10*3/uL Neutrophils # (1.80-7.70) X 10*3/uL POC Glucose (mg/dL) 245 H 235 H (75-99) mg/dL Hemoglobin A1c 11.8 H (0.0-6.0) % 12/20/21 12/21/21 12/21/21 Range/Units 20:05 02:05 04:27 WBC 10.86 H (4.50-10.00) X 10*3/uL RBC 4.29 L (4.40-5.60) X 10*6/uL Hgb 12.4 L (13.0-17.0) g/dL MCHC 30.8 L (32.0-37.0) g/dL Immature Gran # 0.06 H (0.00-0.04) X 10*3/uL Neutrophils # 7.85 H (1.80-7.70) X 10*3/uL POC Glucose (mg/dL) 261 H 213 H (75-99) mg/dL Hemoglobin A1c (0.0-6.0) % 12/21/21 Range/Units 07:04 WBC (4.50-10.00) X 10*3/uL RBC (4.40-5.60) X 10*6/uL Hgb (13.0-17.0) g/dL MCHC (32.0-37.0) g/dL Immature Gran # (0.00-0.04) X 10*3/uL Neutrophils # (1.80-7.70) X 10*3/uL POC Glucose (mg/dL) 224 H (75-99) mg/dL Hemoglobin A1c (0.0-6.0) % Microbiology - Last 24 Hours (Table) 12/20/21 01:45 Blood Culture - Preliminary Blood No Growth after 24 hours 12/20/21 02:09 Blood Culture - Preliminary Blood No Growth after 24 hours
[2021-12-21] MEDS: KETOROLAC 15 MG/ML 1 ML VIAL IVP PRN ×2 (11:10→17:28)
[2021-12-21 11:52] LABS: Glucose,Whole Blood 185 mg/dL (75-99)
--- NOTE | 2021-12-21 14:03 | P.PN ---
Subjective Progress Note Date: 12/21/21 Patient is in the hospital with difficult urination and pain in the perineum. He had a computed tomography scan suggesting prostatitis and perhaps of prostatic abscess. His white count was 13.2. His urine was clear. He has been afebrile. He was placed on antibiotics. He was seen by yesterday and they discussed suprapubic tube. The patient declined that. His voiding better today. His residuals are down to about 200 mL. His white count is down to 10.8. He is feeling better we'll continue with antibiotics. He'll need reimaging at some point time as long as he improves then we can wait until outpatient. Objective - Vital Signs Vital signs: Vital Signs Temp 98.1 F 12/21/21 07:45 Pulse 83 12/21/21 07:45 Resp 15 12/21/21 07:45 BP 102/69 12/21/21 07:45 Pulse Ox 94 L 12/21/21 07:45 Intake & Output 12/20/21 12/21/21 12/21/21 18:59 06:59 18:59 Output Total 757 Balance -757 Output: Post Void Residual 757 Other: Voiding Method Toilet Urinal Toilet Urinal # Voids 3 4 - Labs CBC & Chem 7: 12/21/21 04:27 12/20/21 02:09 Labs: Abnormal Lab Results - Last 24 Hours (Table) 12/20/21 12/20/21 12/21/21 Range/Units 16:41 20:05 02:05 WBC (4.50-10.00) X 10*3/uL RBC (4.40-5.60) X 10*6/uL Hgb (13.0-17.0) g/dL MCHC (32.0-37.0) g/dL Immature Gran # (0.00-0.04) X 10*3/uL Neutrophils # (1.80-7.70) X 10*3/uL POC Glucose (mg/dL) 235 H 261 H 213 H (75-99) mg/dL 12/21/21 12/21/21 12/21/21 Range/Units 04:27 07:04 11:49 WBC 10.86 H (4.50-10.00) X 10*3/uL RBC 4.29 L (4.40-5.60) X 10*6/uL Hgb 12.4 L (13.0-17.0) g/dL MCHC 30.8 L (32.0-37.0) g/dL Immature Gran # 0.06 H (0.00-0.04) X 10*3/uL Neutrophils # 7.85 H (1.80-7.70) X 10*3/uL POC Glucose (mg/dL) 224 H 185 H (75-99) mg/dL Microbiology - Last 24 Hours (Table) 12/20/21 01:45 Blood Culture - Preliminary Blood No Growth after 24 hours 12/20/21 02:09 Blood Culture - Preliminary Blood No Growth after 24 hours
[2021-12-21 14:33] VITALS: BMI 30.5
[2021-12-21 17:00] LABS: Glucose,Whole Blood 246 mg/dL (75-99)
[2021-12-21 20:17] LABS: Glucose,Whole Blood 170 mg/dL (75-99)
[2021-12-21] MEDS: INSULIN DETEMIR (LEVEMIR) 100 UNIT/ML SYR SQ SCH (20:52)
[2021-12-21] MEDS: RIVAROXABAN 20 MG TAB PO SCH (20:53)
[2021-12-21] MEDS: ATORVASTATIN 80 MG TAB PO SCH (20:53)
[2021-12-21] MEDS: PANTOPRAZOLE 40 MG TABLET PO SCH (20:53)
[2021-12-21] MEDS: LEVOFLOXACIN 500MG-D5W PMX 500 MG in DEXTROSE/WATER 1 100ML.BAG IVPB SCH (20:54)
[2021-12-21] MEDS: traZODone HCL 50 MG TAB PO PRN (23:47)
[2021-12-22 01:51] LABS: Glucose,Whole Blood 195 mg/dL (75-99)
[2021-12-22 07:10] LABS: Glucose,Whole Blood 157 mg/dL (75-99)
[2021-12-22] MEDS: KETOROLAC 15 MG/ML 1 ML VIAL IVP PRN ×3 (07:17→20:42)
--- NOTE | 2021-12-22 07:35 | P.PN ---
Subjective Progress Note Date: 12/22/21 The patient is in the hospital with perineal pain difficulty voiding secondary to prostatitis perhaps a prostatic abscess. He is been placed on antibiotics. The pain is slightly better. He is voiding much better. He is afebrile. He get his pain under control on oral medication he'll be discharged home on oral antibiotics which will need to stay in at least 6-8 weeks. As long as he voids reasonably well and his pain is under control we'll reimage the prostate as an outpatient. Objective - Vital Signs Vital signs: Vital Signs Temp 98.1 F 12/22/21 07:11 Pulse 94 12/22/21 07:11 Resp 18 12/22/21 07:11 BP 118/61 12/22/21 07:11 Pulse Ox 91 L 12/22/21 07:11 Intake & Output 12/21/21 12/22/21 12/22/21 18:59 06:59 18:59 Intake Total 1800 Output Total 375 Balance 1425 Weight 102.058 kg Intake: Intake, IV Titration 1300 Amount Levofloxacin 500Mg-D5w 100 Pmx 500 mg In Dextrose/ Water 1 100ml.bag @ 100 mls/hr IVPB HS RAFAEL Rx#: [id number] Sodium Chloride 0.9% 1, 1200 000 ml @ 100 mls/hr IV . Q10H RAFAEL Rx#:[id number] Oral 500 Output: Urine 375 Other: Voiding Method Toilet Toilet Urinal Urinal # Voids 2 1 - Labs CBC & Chem 7: 12/21/21 04:27 12/20/21 02:09 Labs: Abnormal Lab Results - Last 24 Hours (Table) 12/21/21 12/21/21 12/21/21 Range/Units 04:27 11:49 16:59 WBC 10.86 H (4.50-10.00) X 10*3/uL RBC 4.29 L (4.40-5.60) X 10*6/uL Hgb 12.4 L (13.0-17.0) g/dL MCHC 30.8 L (32.0-37.0) g/dL Immature Gran # 0.06 H (0.00-0.04) X 10*3/uL Neutrophils # 7.85 H (1.80-7.70) X 10*3/uL POC Glucose (mg/dL) 185 H 246 H (75-99) mg/dL 12/21/21 12/22/21 12/22/21 Range/Units 20:16 01:49 07:08 WBC (4.50-10.00) X 10*3/uL RBC (4.40-5.60) X 10*6/uL Hgb (13.0-17.0) g/dL MCHC (32.0-37.0) g/dL Immature Gran # (0.00-0.04) X 10*3/uL Neutrophils # (1.80-7.70) X 10*3/uL POC Glucose (mg/dL) 170 H 195 H 157 H (75-99) mg/dL Microbiology - Last 24 Hours (Table) 12/20/21 02:09 Blood Culture - Preliminary Blood No Growth after 48 hours 12/20/21 01:45 Blood Culture - Preliminary Blood No Growth after 48 hours
[2021-12-22] MEDS: INSULIN ASPART (NovoLOG) 100 UNIT/ML VIAL SQ SCH ×4 (07:40→20:10)
[2021-12-22] MEDS: carvediloL 12.5 MG TAB PO SCH ×2 (07:41→17:21)
[2021-12-22] MEDS: SODIUM CHLORIDE 0.9% 1,000 ML IV SCH ×3 (08:29→20:45)
[2021-12-22 08:42] LABS: C. trachomatis,PCR Negative (Neg,Equiv); Chlamydia trachomatis Source Urine
[2021-12-22 08:48] LABS: N. gonorrhoeae,PCR Negative (Neg,Equiv); Neisseria Source Urine
--- NOTE | 2021-12-22 09:49 | P.PN ---
Subjective Progress Note Date: 12/22/21 Patient reports his pain has improved. It is controlled with pain medication. He denies dysuria. Flagyl d/c'd yesterday. Overall clinically improving Gen: awake, alert HEENT: normocephalic, atraumatic, good hearing acuity, moist mucous membranes Resp: good air exchange, breathing comfortably with no accessory muscle use CVS: good distal perfusion x 4, GI: soft, NTTP, ND : no SPT, no CVAT, almodovar catheter is present MSK: no pitting edema, no clubbing Neuro: non-focal, moving all extremities Psych: cooperative, euthymic mood Assessment/plan: Sepsis secondary to acute prostatitis, possible abscess -Continue with IV antibiotics with Levaquin for now -Urology consult -IV fluids -Pain control Uncontrolled type II DM with hyperglycemia -Check A1c -Insulin sliding scale blood glucose monitoring -Levemir 10 units daily at bedtime Hyponatremia, likely pseudo in setting of hyperglycemia -Continue with above management CAD Chronic Systolic CHF, EF < 15% Hypertension Hyperlipidemia -Continue with home meds DVT prophylaxis with Heparin TID CODE STATUS: Full Code Anticipated discharge place: Home Objective - Vital Signs Vital signs: Vital Signs Temp 98.1 F 12/22/21 07:11 Pulse 94 12/22/21 08:31 Resp 18 12/22/21 07:11 BP 118/61 12/22/21 07:11 Pulse Ox 91 L 12/22/21 07:11 Intake & Output 12/21/21 12/22/21 12/22/21 18:59 06:59 18:59 Intake Total 1800 Output Total 375 Balance 1425 Weight 102.058 kg Intake: Intake, IV Titration 1300 Amount Levofloxacin 500Mg-D5w 100 Pmx 500 mg In Dextrose/ Water 1 100ml.bag @ 100 mls/hr IVPB HS RAFAEL Rx#: [id number] Sodium Chloride 0.9% 1, 1200 000 ml @ 100 mls/hr IV . Q10H RAFAEL Rx#:[id number] Oral 500 Output: Urine 375 Other: Voiding Method Toilet Toilet Toilet Urinal Urinal # Voids 2 1 - Labs CBC & Chem 7: 12/21/21 04:27 12/20/21 02:09 Labs: Abnormal Lab Results - Last 24 Hours (Table) 12/21/21 12/21/21 12/21/21 Range/Units 11:49 16:59 20:16 POC Glucose (mg/dL) 185 H 246 H 170 H (75-99) mg/dL 12/22/21 12/22/21 Range/Units 01:49 07:08 POC Glucose (mg/dL) 195 H 157 H (75-99) mg/dL Microbiology - Last 24 Hours (Table) 12/20/21 02:09 Blood Culture - Preliminary Blood No Growth after 48 hours 12/20/21 01:45 Blood Culture - Preliminary Blood No Growth after 48 hours
[2021-12-22 10:12] LABS: Basophils # (A) 0.03 X 10*3/uL (0.00-0.10); Basophils % (A) 0.3 %; Eosinophils # (A) 0.22 X 10*3/uL (0.04-0.35); Eosinophils % (A) 2.2 %; HCT 41.2 % (39.6-50.0); HGB 13.1 g/dL (13.0-17.0); Immature Grans, Automated 0.3 %; Lymphocytes % (A) 16.8 %; MCH 29.2 pg (27.0-32.0); MCHC 31.8 g/dL (32.0-37.0); Mean Platelet Volume 10.6 fL (9.5-12.2); Monocytes # (A) 0.93 X 10*3/uL (0.20-1.00); Monocytes % (A) 9.2 %; NRBC Per 100 WBC 0 /100 WBCS (0.0-0.0); Neutrophils # (A) 7.23 X 10*3/uL (1.80-7.70); Neutrophils % (A) 71.2 %; Platelet Count 271 X 10*3/uL (140-440); RBC 4.48 X 10*6/uL (4.40-5.60); RDW 12.3 % (11.5-14.5); WBC 10.14 X 10*3/uL (4.50-10.00)
[2021-12-22] MEDS: SPIRONOLACTONE 25 MG TAB PO SCH (10:18)
[2021-12-22 10:29] LABS: Anion Gap 9.4 mmol/L (10.00-18.00); BUN/Creat Ratio 12.14 Ratio (12.00-20.00); Blood Urea Nitrogen 8.5 mg/dL (9.0-27.0); Calcium 8.5 mg/dL (8.7-10.3); Carbon Dioxide 27.6 mmol/L (20.0-27.5); Magnesium 1.8 mg/dL (1.5-2.4); Non-African American GFR(CKD) 114.8 (60.0-200.0); Potassium 3.8 mmol/L (3.5-5.5)
[2021-12-22 11:09] LABS: Glucose,Whole Blood 144 mg/dL (75-99)
[2021-12-22 16:31] LABS: Glucose,Whole Blood 168 mg/dL (75-99)
[2021-12-22 19:58] LABS: Glucose,Whole Blood 112 mg/dL (75-99)
[2021-12-22] MEDS: LEVOFLOXACIN 500MG-D5W PMX 500 MG in DEXTROSE/WATER 1 100ML.BAG IVPB SCH (20:43)
[2021-12-22] MEDS: PANTOPRAZOLE 40 MG TABLET PO SCH (20:43)
[2021-12-22] MEDS: ATORVASTATIN 80 MG TAB PO SCH (20:43)
[2021-12-22] MEDS: INSULIN DETEMIR (LEVEMIR) 100 UNIT/ML SYR SQ SCH (20:43)
[2021-12-22] MEDS: RIVAROXABAN 20 MG TAB PO SCH (20:43)
[2021-12-23 01:52] LABS: Glucose,Whole Blood 166 mg/dL (75-99)
[2021-12-23 01:58] VITALS: RESP 18
[2021-12-23] MEDS: KETOROLAC 15 MG/ML 1 ML VIAL IVP PRN ×2 (02:52→09:48)
[2021-12-23] MEDS: traZODone HCL 50 MG TAB PO PRN (02:52)
[2021-12-23 07:13] LABS: Glucose,Whole Blood 155 mg/dL (75-99)
[2021-12-23 08:01] VITALS: BP 106/66; PULSE 92; TEMP 98.9
[2021-12-23 09:27] LABS: African American GFR (CKD) 125.9 (60.0-200.0); Anion Gap 8.6 mmol/L (10.00-18.00); BUN/Creat Ratio 8.5 Ratio (12.00-20.00); Blood Urea Nitrogen 6.8 mg/dL (9.0-27.0); Calcium 8.3 mg/dL (8.7-10.3); Carbon Dioxide 27.4 mmol/L (20.0-27.5); Magnesium 1.9 mg/dL (1.5-2.4); Non-African American GFR(CKD) 108.6 (60.0-200.0); Potassium 4.2 mmol/L (3.5-5.5)
[2021-12-23] MEDS ORDERED: FUROSEMIDE 10 MG/ML 4 ML VIAL IV STA (09:28)
--- NOTE | 2021-12-23 09:28 | P.PN ---
Subjective Progress Note Date: 12/23/21 Principal diagnosis: The patient is in the hospital with probable prostatitis possible prostatic abscess. He is in place and antibiotics. His symptoms have abated. He is voiding much better. From urologic standpoint he can be discharged home. He should follow my office. I'll send him home on Cipro 500 twice a day. He'll need at least 2 months of treatment. I'll see him in the office in one week. He'll need either a follow-up computed tomography scan or prostate ultrasound to reassess the prosthetic fluid. This has been discussed with the patient. Objective - Vital Signs Vital signs: Vital Signs Temp 98.9 F 12/23/21 08:00 Pulse 92 12/23/21 08:00 Resp 18 12/23/21 08:00 BP 106/66 12/23/21 08:00 Pulse Ox 92 L 12/23/21 08:00 Intake & Output 12/22/21 12/23/21 12/23/21 18:59 06:59 18:59 Other: Voiding Method Toilet Toilet # Voids 3 3 # Bowel Movements 1 - Labs CBC & Chem 7: 12/22/21 06:55 12/22/21 06:55 Labs: Abnormal Lab Results - Last 24 Hours (Table) 12/22/21 12/22/21 12/22/21 Range/Units 06:55 06:55 11:07 WBC 10.14 H (4.50-10.00) X 10*3/uL MCHC 31.8 L (32.0-37.0) g/dL Carbon Dioxide 27.6 H (20.0-27.5) mmol/L Anion Gap 9.40 L (10.00-18.00) mmol/L BUN 8.5 L (9.0-27.0) mg/dL Glucose 163 H (70-110) mg/dL POC Glucose (mg/dL) 144 H (75-99) mg/dL Calcium 8.5 L (8.7-10.3) mg/dL 12/22/21 12/22/21 12/23/21 Range/Units 16:28 19:55 01:50 WBC (4.50-10.00) X 10*3/uL MCHC (32.0-37.0) g/dL Carbon Dioxide (20.0-27.5) mmol/L Anion Gap (10.00-18.00) mmol/L BUN (9.0-27.0) mg/dL Glucose (70-110) mg/dL POC Glucose (mg/dL) 168 H 112 H 166 H (75-99) mg/dL Calcium (8.7-10.3) mg/dL 12/23/21 Range/Units 07:00 WBC (4.50-10.00) X 10*3/uL MCHC (32.0-37.0) g/dL Carbon Dioxide (20.0-27.5) mmol/L Anion Gap (10.00-18.00) mmol/L BUN (9.0-27.0) mg/dL Glucose (70-110) mg/dL POC Glucose (mg/dL) 155 H (75-99) mg/dL Calcium (8.7-10.3) mg/dL Microbiology - Last 24 Hours (Table) 12/20/21 01:45 Blood Culture - Preliminary Blood No Growth after 72 hours 12/20/21 02:09 Blood Culture - Preliminary Blood No Growth after 72 hours
[2021-12-23] MEDS: SPIRONOLACTONE 25 MG TAB PO SCH (09:38)
[2021-12-23] MEDS: carvediloL 12.5 MG TAB PO SCH (09:38)
[2021-12-23] MEDS: INSULIN ASPART (NovoLOG) 100 UNIT/ML VIAL SQ SCH (09:38)
[2021-12-23 09:45] LABS: Basophils # (A) 0.03 X 10*3/uL (0.00-0.10); Basophils % (A) 0.3 %; Eosinophils # (A) 0.28 X 10*3/uL (0.04-0.35); Eosinophils % (A) 3.3 %; HCT 39.8 % (39.6-50.0); Immature Grans, Automated 0.3 %; Lymphocytes # (A) 2.03 X 10*3/uL (0.90-5.00); Lymphocytes % (A) 23.6 %; MCH 29.7 pg (27.0-32.0); MCHC 32.7 g/dL (32.0-37.0); MCV 91.1 fL (80.0-97.0); Mean Platelet Volume 10.7 fL (9.5-12.2); Monocytes # (A) 0.98 X 10*3/uL (0.20-1.00); Monocytes % (A) 11.4 %; NRBC Per 100 WBC 0 /100 WBCS (0.0-0.0); Neutrophils # (A) 5.24 X 10*3/uL (1.80-7.70); Neutrophils % (A) 61.1 %; Platelet Count 270 X 10*3/uL (140-440); RBC 4.37 X 10*6/uL (4.40-5.60); RDW 12.3 % (11.5-14.5); WBC 8.59 X 10*3/uL (4.50-10.00)
[2021-12-23] MEDS: SODIUM CHLORIDE 0.9% 1,000 ML IV SCH (10:09)
--- NOTE | 2021-12-23 10:45 | P.DS ---
Providers Date of admission: 12/20/21 03:27 Expected date of discharge: 12/23/21 Attending physician: Sunita Long MD Consults: 12/20/21 03:38 Consult Physician Urgent Consulting Provider: Alex Green Consult Reason/Comments: Prostatitis with prostate abscess Do you want consulting provider notified?: Yes, Notify in am Primary care physician: [facility] Course: Sepsis secondary to acute prostatitis, possible abscess Uncontrolled type II DM with hyperglycemia Hyponatremia, likely pseudo in setting of hyperglycemia CAD Chronic Systolic CHF, EF < 15% Hypertension Hyperlipidemia The patient is a 46-year-old male with a PMH of coronary artery disease status post CO, systolic CHF with EF less than 15% status post AICD placement, type II DM, hypertension, and hyperlipidemia who presents to the emergency room with complaints of dysuria and pelvic pain. Vitals upon presentation were notable for pulse of 111. CT abdomen and pelvis revealed a possible cystic mass at the base of the prostate gland in the region of the posterior urethra. Laboratory evaluation was remarkable for leukocytosis of 13.2, sodium 132, chloride 95, glucose 343, lactic acid 1.4, and UA remarkable for 4+ glucose and trace ketones. Pt was subsequently admitted with sepsis secondary to acute prostatitis. Urology consulted and recommended conservative management. Pt was feeling well on day of discharge. He did have post-void residuals of 411 on day of dc. He was sent home with 60 days of oral ciprofloxacin and urology f/u to ensure no developing/worsening urinary retention. I spent 36 minutes coordinating this complex discharge Gen: awake, alert HEENT: normocephalic, atraumatic, good hearing acuity, moist mucous membranes Resp: good air exchange, breathing comfortably with no accessory muscle use CVS: good distal perfusion x 4, GI: soft, NTTP, ND : no SPT, no CVAT, almodovar catheter is present MSK: no pitting edema, no clubbing Neuro: non-focal, moving all extremities Psych: cooperative, euthymic mood Patient Condition at Discharge: Good Plan - Discharge Summary Discharge Rx Participant: No New Discharge Prescriptions: New Ciprofloxacin HCl 500 mg PO BID #120 tablet Acetaminophen Tab [Tylenol] 650 mg PO Q6HR PRN tab PRN Reason: Mild Pain Or Fever > 100.5 Continue Insulin Detemir (Levemir) [Levemir] 46 unit SQ HS Atorvastatin [Lipitor] 80 mg PO HS glipiZIDE [Glucotrol] 10 mg PO BID-W/MEALS Rivaroxaban [Xarelto] 20 mg PO HS carvediloL [Coreg*] 12.5 mg PO BID Spironolactone 50 mg PO DAILY Omeprazole 40 mg PO HS metFORMIN HCL [Glucophage] 1,000 mg PO BID-W/MEALS Discharge Medication List Atorvastatin [Lipitor] 80 mg PO HS 12/15/14 [History] Insulin Detemir (Levemir) [Levemir] 46 unit SQ HS 12/15/14 [History] Omeprazole 40 mg PO HS 02/10/19 [History] Rivaroxaban [Xarelto] 20 mg PO HS 02/10/19 [History] Spironolactone 50 mg PO DAILY 02/10/19 [History] carvediloL [Coreg*] 12.5 mg PO BID 02/10/19 [History] glipiZIDE [Glucotrol] 10 mg PO BID-W/MEALS 02/10/19 [History] metFORMIN HCL [Glucophage] 1,000 mg PO BID-W/MEALS 12/20/21 [History] Acetaminophen Tab [Tylenol] 650 mg PO Q6HR PRN tab 12/23/21 [Rx] Ciprofloxacin HCl 500 mg PO BID #120 tablet 12/23/21 [Rx] Follow up Appointment(s)/Referral(s): Deondre Vera MD [STAFF PHYSICIAN] - 1 Week (office will call with appointment time) Ben Beltran [Primary Care Provider] - 12/30/21 8:30 am () Discharge Disposition: HOME SELF-CARE
[2021-12-23 11:17] LABS: Glucose,Whole Blood 168 mg/dL (75-99)
== END 2021-12-23 11:47 | disposition home or self-care (01) | DRG 872 ==
LOC: EC 00:20 → 4SSUR 03:27
PROVIDERS: ADMIT Internal Medicine; ATTEND Internal Medicine
DX: A41.9 Sepsis, unspecified organism (principal); N41.0 Acute prostatitis; I50.22 Chronic systolic (congestive) heart failure; E87.1 Hypo-osmolality and hyponatremia; N41.2 Abscess of prostate; E11.65 Type 2 diabetes mellitus with hyperglycemia; E78.5 Hyperlipidemia, unspecified; I11.0 Hypertensive heart disease with heart failure; I25.10 Atherosclerotic heart disease of native coronary artery without angina pectoris; K62.89 Other specified diseases of anus and rectum; I25.2 Old myocardial infarction; Z79.01 Long term (current) use of anticoagulants; Z79.4 Long term (current) use of insulin; Z79.82 Long term (current) use of aspirin; Z79.899 Other long term (current) drug therapy; Z87.891 Personal history of nicotine dependence; Z95.810 Presence of automatic (implantable) cardiac defibrillator; Z87.440 Personal history of urinary (tract) infections; Z88.1 Allergy status to other antibiotic agents; Z84.2 Family history of other diseases of the genitourinary system
CPT/HCPCS: 36415; 74177; 80048; 80053; 81003; 83036; 83605; 83735; 84145; 85025; 85610; 85730; 86140; 87040; 87491; 87591; 96365; 96366; 96368; 96375; 99285

== ENCOUNTER 2021-12-30 21:43 | Inpatient (IN) | payer MEDICARE, OTHER ==
[2021-12-30] MEDS ORDERED: IPRATROPIUM-ALBUTEROL 3 ML NEB INHALATION STA (21:51)
--- NOTE | 2021-12-30 21:52 | ED ---
Weakness HPI - General Chief complaint: Chest Pain Stated complaint: SOB,HEART FAILURE Time Seen by Provider: 12/30/21 21:45 Source: patient, family, RN notes reviewed, old records reviewed Mode of arrival: ambulatory Limitations: no limitations - History of Present Illness Initial comments: This is a 46-year-old male to the ER for evaluation. Patient presents today for evaluation regards to shortness of breath weakness chest pain. Patient does have weakness recent diagnosis of prostatitis still on antibiotics. Patient states about 2 hours prior to arrival he felt significantly weak lightheaded and dizzy chest pain shortness of breath heart feels like is racing his chest. History of heart failure. History of chest pain. History of CA. Patient states his symptoms feel like a prior CA MD Complaint: generalized weakness, lack of energy, difficulty walking -: hour(s) Location: generalized Severity: moderate Quality: tingling, aching Consistency: constant Improves with: none Worsens with: none Context: recent illness, history of similar Associated Symptoms: chest pain, confusion, fever/chills, loss of appetite, nausea/vomiting, shortness of breath - Related Data Home Medications Medication Instructions Recorded Confirmed Atorvastatin [Lipitor] 80 mg PO HS 12/15/14 12/30/21 Insulin Detemir (Levemir) [Levemir] 46 unit SQ HS 12/15/14 12/30/21 Omeprazole 40 mg PO HS 02/10/19 12/30/21 Rivaroxaban [Xarelto] 20 mg PO HS 02/10/19 12/30/21 Spironolactone 50 mg PO DAILY 02/10/19 12/30/21 carvediloL [Coreg*] 12.5 mg PO BID 02/10/19 12/30/21 glipiZIDE [Glucotrol] 10 mg PO BID-W/MEALS 02/10/19 12/30/21 metFORMIN HCL [Glucophage] 1,000 mg PO BID-W/MEALS 12/20/21 12/30/21 Previous Rx's Medication Instructions Recorded Acetaminophen Tab [Tylenol] 650 mg PO Q6HR PRN tab 12/23/21 Ciprofloxacin HCl 500 mg PO BID #120 tablet 12/23/21 Allergies Allergy/AdvReac Type Severity Reaction Status Date / Time amoxicillin Allergy Unknown Verified 12/30/21 22:35 Review of Systems ROS Statement: Those systems with pertinent positive or pertinent negative responses have been documented in the HPI. ROS Other: All systems not noted in ROS Statement are negative. Past Medical History Past Medical History: Diabetes Mellitus, Hypertension, Myocardial Infarction (CA), Neurologic Disorder Last Myocardial Infarction Date:: 2012 History of Any Multi-Drug Resistant Organisms: None Reported Past Surgical History: AICD Additional Past Surgical History / Comment(s): AICD IMPLANTED DECEMBER/2013 AT [facility] Past Anesthesia/Blood Transfusion Reactions: No Reported Reaction Type of Cardiac Device: Permanent Pacemaker, AICD Device Placement Date:: 12/2013 Past Psychological History: No Psychological Hx Reported Smoking Status: Former smoker Past Alcohol Use History: Rare Past Drug Use History: Marijuana - Past Family History Father Additional Family Medical History / Comment(s): BPH General Exam General appearance: alert, anxious, in distress Head exam: Present: atraumatic, normocephalic, normal inspection Eye exam: Present: normal appearance, PERRL, EOMI. Absent: scleral icterus, conjunctival injection, periorbital swelling ENT exam: Present: normal exam, mucous membranes moist Neck exam: Present: normal inspection. Absent: tenderness, meningismus, lymphadenopathy Respiratory exam: Present: respiratory distress, accessory muscle use, decreased breath sounds, prolonged expiratory. Absent: wheezes, rales, rhonchi, stridor Cardiovascular Exam: Present: normal rhythm, tachycardia, normal heart sounds. Absent: systolic murmur, diastolic murmur, rubs, gallop, clicks GI/Abdominal exam: Present: soft, normal bowel sounds. Absent: distended, tenderness, guarding, rebound, rigid Extremities exam: Present: normal inspection, full ROM, normal capillary refill. Absent: tenderness, pedal edema, joint swelling, calf tenderness Back exam: Present: normal inspection Neurological exam: Present: alert, oriented X3, CN II-XII intact Psychiatric exam: Present: normal affect, normal mood Skin exam: Present: warm, dry, intact, normal color. Absent: rash Course Vital Signs 12/30/21 21:44 Temperature 98.2 F Pulse Rate 148 H Respiratory 28 H Rate Blood Pressure 147/88 O2 Sat by Pulse 94 L Oximetry - Reevaluation(s) Reevaluation #1: 12/30/21 23:12 Medical record is reviewed Reevaluation #2: 12/30/21 23:12 Patient informed results and questions answered Reevaluation #3: 04/06/22 23:12 Patient showing significant improvement still remains tachycardic and weak - Consultations Consultation #1: [place] with sound physicians who agree to admit this patient EKG Findings - EKG Comments: EKG Findings:: KG is sinus tachycardia 129 NC 160 QRS 90 QTC 394 Medical Decision Making - Medical Decision Making 46 male DF for evaluation of significant weakness shortness of breath chest pain. Patient will be admitted for recurrent sepsis. Chest x-ray currently clear she does have continued prostatitis likely - Lab Data Result diagrams: 12/30/21 22:14 12/30/21 22:14 Lab Results 12/30/21 12/30/21 12/30/21 Range/Units 22:14 22:14 22:14 WBC 17.1 H (3.8-10.6) k/uL RBC 4.96 (4.30-5.90) m/uL Hgb 14.4 (13.0-17.5) gm/dL Hct 45.4 (39.0-53.0) % MCV 91.6 (80.0-100.0) fL MCH 29.1 (25.0-35.0) pg MCHC 31.8 (31.0-37.0) g/dL RDW 12.7 (11.5-15.5) % Plt Count 333 (150-450) k/uL MPV 7.9 Neutrophils % 91 % Lymphocytes % 3 % Monocytes % 3 % Eosinophils % 2 % Basophils % 1 % Neutrophils # 15.6 H (1.3-7.7) k/uL Lymphocytes # 0.5 L (1.0-4.8) k/uL Monocytes # 0.6 (0-1.0) k/uL Eosinophils # 0.4 (0-0.7) k/uL Basophils # 0.1 (0-0.2) k/uL PT 11.0 (9.0-12.0) sec INR 1.0 (<1.2) APTT 23.3 (22.0-30.0) sec Sodium 137 (137-145) mmol/L Potassium 4.7 (3.5-5.1) mmol/L Chloride 99 (98-107) mmol/L Carbon Dioxide 30 (22-30) mmol/L Anion Gap 8 mmol/L BUN 15 (9-20) mg/dL Creatinine 0.80 (0.66-1.25) mg/dL Est GFR (CKD-EPI)AfAm >90 (>60 ml/min/1.73 sqM) Est GFR (CKD-EPI)NonAf >90 (>60 ml/min/1.73 sqM) Glucose 250 H (74-99) mg/dL Plasma Lactic Acid Ben (0.7-2.0) mmol/L Calcium 9.0 (8.4-10.2) mg/dL Magnesium 1.4 L (1.6-2.3) mg/dL Total Bilirubin 0.8 (0.2-1.3) mg/dL AST 19 (17-59) U/L ALT 23 (4-49) U/L Alkaline Phosphatase 70 (38-126) U/L Troponin I (0.000-0.034) ng/mL Total Protein 7.4 (6.3-8.2) g/dL Albumin 4.1 (3.5-5.0) g/dL 12/30/21 12/30/21 Range/Units 22:14 22:14 WBC (3.8-10.6) k/uL RBC (4.30-5.90) m/uL Hgb (13.0-17.5) gm/dL Hct (39.0-53.0) % MCV (80.0-100.0) fL MCH (25.0-35.0) pg MCHC (31.0-37.0) g/dL RDW (11.5-15.5) % Plt Count (150-450) k/uL MPV Neutrophils % % Lymphocytes % % Monocytes % % Eosinophils % % Basophils % % Neutrophils # (1.3-7.7) k/uL Lymphocytes # (1.0-4.8) k/uL Monocytes # (0-1.0) k/uL Eosinophils # (0-0.7) k/uL Basophils # (0-0.2) k/uL PT (9.0-12.0) sec INR (<1.2) APTT (22.0-30.0) sec Sodium (137-145) mmol/L Potassium (3.5-5.1) mmol/L Chloride (98-107) mmol/L Carbon Dioxide (22-30) mmol/L Anion Gap mmol/L BUN (9-20) mg/dL Creatinine (0.66-1.25) mg/dL Est GFR (CKD-EPI)AfAm (>60 ml/min/1.73 sqM) Est GFR (CKD-EPI)NonAf (>60 ml/min/1.73 sqM) Glucose (74-99) mg/dL Plasma Lactic Acid Ben 2.9 H* (0.7-2.0) mmol/L Calcium (8.4-10.2) mg/dL Magnesium (1.6-2.3) mg/dL Total Bilirubin (0.2-1.3) mg/dL AST (17-59) U/L ALT (4-49) U/L Alkaline Phosphatase (38-126) U/L Troponin I <0.012 (0.000-0.034) ng/mL Total Protein (6.3-8.2) g/dL Albumin (3.5-5.0) g/dL - Radiology Data Radiology results: report reviewed (X-rays negative for acute disease), image reviewed Critical Care Time Critical Care Time: Yes Total Critical Care Time: 31 Disposition Clinical Impression: Sepsis, Acute prostatitis, Chest pain, Atypical chest pain, Weakness, Tachycardia Disposition: ADMITTED IP TO THIS HOSP Condition: Fair Is patient prescribed a controlled substance at d/c from ED?: No Referrals: Ben Beltran [Primary Care Provider] - 1-2 days Time of Disposition: 23:15
[2021-12-30] MEDS ORDERED: METOPROLOL TARTRATE 5 MG/5 ML VIAL IVP STA (22:08)
[2021-12-30] MEDS ORDERED: ONDANSETRON 4 MG/2 ML VIAL IVP STA (22:08)
--- NOTE | 2021-12-30 22:14 | XR ---
EXAMINATION TYPE: XR chest 1V portable DATE OF EXAM: 12/30/2021 COMPARISON: 02/10/2019 HISTORY: 46 years Male. STUDY INDICATION GIVEN: sob . TECHNIQUE: AP semiupright chest radiograph IMPRESSION: Single lead cardiac AICD device relatively unchanged in position compared to prior study. New patchy right lower lobe opacity may be reflective of atelectasis or pulmonary infiltrate. No pneumothorax or effusion. No acute osseous abnormalities seen.
[2021-12-30 22:18] LABS: Basophils # (A) 0.1 k/uL (0-0.2); Basophils % (A) 1 %; Eosinophils # (A) 0.4 k/uL (0-0.7); Eosinophils % (A) 2 %; HCT 45.4 % (39.0-53.0); HGB 14.4 gm/dL (13.0-17.5); Lymphocytes # (A) 0.5 k/uL (1.0-4.8); Lymphocytes % (A) 3 %; MCH 29.1 pg (25.0-35.0); MCHC 31.8 g/dL (31.0-37.0); MCV 91.6 fL (80.0-100.0); Mean Platelet Volume 7.9; Monocytes # (A) 0.6 k/uL (0-1.0); Monocytes % (A) 3 %; Neutrophils # (A) 15.6 k/uL (1.3-7.7); Neutrophils % (A) 91 %; Platelet Count 333 k/uL (150-450); RBC 4.96 m/uL (4.30-5.90); RDW 12.7 % (11.5-15.5); WBC 17.1 k/uL (3.8-10.6)
[2021-12-30 22:32] LABS: Partial Thromboplastin Time 23.3 sec (22.0-30.0)
[2021-12-30 22:34] LABS: ALT 23 U/L (4-49); AST 19 U/L (17-59); African American GFR (CKD) >90 (>60 ml/min/1.73 sqM); Albumin 4.1 g/dL (3.5-5.0); Alkaline Phosphatase 70 U/L (38-126); Anion Gap 8 mmol/L; Blood Urea Nitrogen 15 mg/dL (9-20); Carbon Dioxide 30 mmol/L (22-30); Chloride 99 mmol/L (98-107); Glucose 250 mg/dL (74-99); Magnesium 1.4 mg/dL (1.6-2.3); Non-African American GFR(CKD) >90 (>60 ml/min/1.73 sqM); Potassium 4.7 mmol/L (3.5-5.1); Sodium 137 mmol/L (137-145); Total Bilirubin 0.8 mg/dL (0.2-1.3); Total Protein 7.4 g/dL (6.3-8.2)
[2021-12-30] MEDS ORDERED: MAGNESIUM OXIDE 400 MG TAB PO STA (22:38)
[2021-12-30] MEDS ORDERED: LEVOFLOXACIN 750MG-D5W PMX 750 MG in DEXTROSE/WATER 1 150ML.BAG IVPB STA (23:01)
[2021-12-30] MEDS ORDERED: SODIUM CHLORIDE 0.9% 1,000 ML IV STA (23:02)
[2021-12-30] MEDS ORDERED: MORPHINE SULFATE 4 MG/ML SYRINGE IV PRN (23:13)
[2021-12-30] MEDS ORDERED: ONDANSETRON 4 MG/2 ML VIAL IVP PRN (23:13)
[2021-12-30] MEDS ORDERED: NALOXONE 0.4 MG/ML 1 ML VIAL IV PRN (23:13)
[2021-12-30] MEDS: MAGNESIUM SULFATE-D5W PMX 1 GM in DEXTROSE/WATER 1 100ML.BAG IVPB SCH (23:24)
[2021-12-31 00:52] LABS: Appearance,Urine Cloudy (Clear); Bilirubin,Urine Negative (Negative); Blood,Urine Moderate (Negative); Color,Urine Yellow; Glucose,Urine (UA) 4+ (Negative); Ketones,Urine Trace (Negative); Leukocyte Esterase,Urine Large (Negative); Mucus,Urine Rare /hpf; Nitrite,Urine Negative (Negative); Protein,Urine Trace (Negative); RBC,Urine 12 /hpf (0-5); Specific Gravity,Urine 1.018 (1.001-1.035); Urobilinogen,Urine <2.0 mg/dL (<2.0); WBC,Urine 173 /hpf (0-5)
[2021-12-31] MEDS: MAGNESIUM SULFATE-D5W PMX 1 GM in DEXTROSE/WATER 1 100ML.BAG IVPB SCH (01:05)
[2021-12-31] MEDS: ACETAMINOPHEN TAB 325 MG TAB PO PRN ×3 (01:05→11:26)
[2021-12-31] MEDS ORDERED: MAGNESIUM SULFATE-D5W PMX 1 GM in DEXTROSE/WATER 1 100ML.BAG IVPB ONE (01:08)
--- NOTE | 2021-12-31 03:22 | P.HPIM ---
History of Present Illness H&P Date: 12/31/21 Chief Complaint: worsening pelvic pain, chest pain 46 year old male with severe systolic CHF, h/o venous thromboembolism, recent diagnosis of prostatitis discharged < 1 week ago on long course of cipro . he is returning due to chest pain , palpitation , worsening urinary symptoms and pelvic pain, fevers, and chills. he does not feel that he was getting better, despite compliance with his antibiotics and meds. he is reporting dizziness, lightheadedness and SOB. he has ischemic cardiomyopathy due to recent [place] s/p stents . in the ED , he was found to have sepsis with lactic acidosis, EKG showed sinus tachy, , recent admission blood cultures remain negative. CXR today no acute pathology Review of Systems Pertinent positives as noted in HPI. All other systems were reviewed and are negative Past Medical History Past Medical History: Diabetes Mellitus, Hypertension, Myocardial Infarction ([place]), Neurologic Disorder Last Myocardial Infarction Date:: 2012 History of Any Multi-Drug Resistant Organisms: None Reported Past Surgical History: AICD Additional Past Surgical History / Comment(s): AICD IMPLANTED DECEMBER/2013 AT [facility] Past Anesthesia/Blood Transfusion Reactions: No Reported Reaction Type of Cardiac Device: Permanent Pacemaker, AICD Device Placement Date:: 12/2013 Past Psychological History: No Psychological Hx Reported Smoking Status: Former smoker Past Alcohol Use History: Rare Past Drug Use History: Marijuana - Past Family History Father Additional Family Medical History / Comment(s): BPH Medications and Allergies Home Medications Medication Instructions Recorded Confirmed Type Atorvastatin [Lipitor] 80 mg PO HS 12/15/14 12/30/21 History Insulin Detemir (Levemir) [Levemir] 46 unit SQ 12/15/14 12/30/21 History Omeprazole 40 mg PO HS 02/10/19 12/30/21 History Rivaroxaban [Xarelto] 20 mg PO HS 02/10/19 12/30/21 History Spironolactone 50 mg PO DAILY 02/10/19 12/30/21 History carvediloL [Coreg*] 12.5 mg PO BID 02/10/19 12/30/21 History glipiZIDE [Glucotrol] 10 mg PO BID-W/MEALS 02/10/19 12/30/21 History metFORMIN HCL [Glucophage] 1,000 mg PO BID-W/MEALS 12/20/21 12/30/21 History Acetaminophen Tab [Tylenol] 650 mg PO Q6HR PRN tab 12/23/21 12/30/21 Rx Ciprofloxacin HCl 500 mg PO BID #120 tablet 12/23/21 12/30/21 Rx Allergies Allergy/AdvReac Type Severity Reaction Status Date / Time amoxicillin Allergy Unknown Verified 12/30/21 22:35 Physical Exam Vitals: Vital Signs Temp Pulse Resp BP Pulse Ox 12/30/21 23:41 100.9 F H 12/30/21 21:44 98.2 F 148 H 28 H 147/88 94 L Intake and Output 12/30/21 12/30/21 12/31/21 14:59 22:59 06:59 Other: Weight 102.058 kg Constitutional: No acute distress, conversant, pleasant Eyes: Anicteric sclerae, moist conjunctiva, Pupils equal round reactive to light ENMT: NC/AT Oropharynx clear, no erythema, or exudates Neck: Supple, FROM, no masses, or JVD No carotid bruits No thyromegaly Lungs: Clear to auscultation Clear to percussion Normal respiratory effort, no accessory muscle use Cardiovascular: Heart tachycardia No murmurs, gallops, or rubs No peripheral edema Abdominal: Soft Nontender, no guarding, rebound or rigidity Abdomen moving with respiration Normoactive bowel sounds No hepatomegaly, No splenomegaly No palpable mass No abdominal wall hernia noted Skin: warm to the touch, otherwise normal tone, texture, turgor Extremities: No digital cyanosis No clubbing Pedal pulses intact and symmetrical Radial pulses intact and symmetrical No calf tenderness Psychiatric: Alert and oriented to person, place and time Appropriate affect fair judgement Neuro Muscles Strength 5/5 in all 4 extremities Sensation to light touch grossly present throughout Cranial nerves II-XII grossly intact No focal sensory deficits Lymphatics: no palpable cervical or supraclavicular , or inguinal lymph nodes Results CBC & Chem 7: 12/30/21 22:14 12/30/21 22:14 Labs: Abnormal Lab Results - Last 24 Hours (Table) 12/30/21 12/30/21 12/30/21 Range/Units 22:14 22:14 22:14 WBC 17.1 H (3.8-10.6) k/uL Neutrophils # 15.6 H (1.3-7.7) k/uL Lymphocytes # 0.5 L (1.0-4.8) k/uL Glucose 250 H (74-99) mg/dL Plasma Lactic Acid Ben 2.9 H* (0.7-2.0) mmol/L Magnesium 1.4 L (1.6-2.3) mg/dL Urine Protein (Negative) Urine Glucose (UA) (Negative) Urine Ketones (Negative) Urine Blood (Negative) Ur Leukocyte Esterase (Negative) Urine RBC (0-5) /hpf Urine WBC (0-5) /hpf Urine Mucus (None) /hpf 12/31/21 Range/Units 00:23 WBC (3.8-10.6) k/uL Neutrophils # (1.3-7.7) k/uL Lymphocytes # (1.0-4.8) k/uL Glucose (74-99) mg/dL Plasma Lactic Acid Ben (0.7-2.0) mmol/L Magnesium (1.6-2.3) mg/dL Urine Protein Trace H (Negative) Urine Glucose (UA) 4+ H (Negative) Urine Ketones Trace H (Negative) Urine Blood Moderate H (Negative) Ur Leukocyte Esterase Large H (Negative) Urine RBC 12 H (0-5) /hpf Urine WBC 173 H (0-5) /hpf Urine Mucus Rare H (None) /hpf Assessment and Plan Assessment: sepsis , secondary to prostatitis , failed OP therapy lactic acidosis , resolved atypical chest pain plan follow up cultures initiated on levoflox urology and ID consult cut back on IVF due to severe ischemic cardiomyopathy resume home cardiac meds monitor vital signs CT scan from recent admission reviewed showing cyctic changes on prostate tylenol for fever, replace Mg, follow up levels chronic conditions DM , insulin sliding scale Hypertension , resume home BP meds thromboembolism , continue with xarelto full code DVT PPX on xarelto for h/o PE anticipated length of stay > 2 mdnights
[2021-12-31 04:01] LABS: Basophils # (A) 0.1 k/uL (0-0.2); Basophils % (A) 0 %; Eosinophils # (A) 0.1 k/uL (0-0.7); Eosinophils % (A) 0 %; HCT 43.3 % (39.0-53.0); HGB 13.5 gm/dL (13.0-17.5); Lymphocytes # (A) 0.4 k/uL (1.0-4.8); Lymphocytes % (A) 3 %; MCH 29.3 pg (25.0-35.0); MCHC 31.2 g/dL (31.0-37.0); MCV 93.8 fL (80.0-100.0); Monocytes # (A) 0.6 k/uL (0-1.0); Monocytes % (A) 4 %; Neutrophils # (A) 12.8 k/uL (1.3-7.7); Neutrophils % (A) 92 %; Platelet Count 308 k/uL (150-450); RBC 4.62 m/uL (4.30-5.90); RDW 12.6 % (11.5-15.5)
[2021-12-31 04:21] LABS: ALT 20 U/L (4-49); AST 20 U/L (17-59); African American GFR (CKD) >90 (>60 ml/min/1.73 sqM); Albumin 3.5 g/dL (3.5-5.0); Alkaline Phosphatase 57 U/L (38-126); Anion Gap 11 mmol/L; Blood Urea Nitrogen 13 mg/dL (9-20); Carbon Dioxide 22 mmol/L (22-30); Chloride 100 mmol/L (98-107); Glucose 262 mg/dL (74-99); Magnesium 1.9 mg/dL (1.6-2.3); Non-African American GFR(CKD) >90 (>60 ml/min/1.73 sqM); Phosphorus 3.2 mg/dL (2.5-4.5); Potassium 3.9 mmol/L (3.5-5.1); Sodium 133 mmol/L (137-145); Total Bilirubin 0.7 mg/dL (0.2-1.3); Total Protein 6.3 g/dL (6.3-8.2)
--- NOTE | 2021-12-31 04:46 | XR ---
EXAMINATION TYPE: XR chest 1V portable DATE OF EXAM: 12/31/2021 COMPARISON: 12/30/2021 HISTORY: Short of breath TECHNIQUE: FINDINGS: Heart and mediastinum are normal. Lungs are clear of consolidation. There is some coarsenin g of the interstitial markings. There is left axillary pacemaker. No obvious heart failure. There is no pleural effusion. There are chest leads. IMPRESSION: Mild pulmonary interstitial infiltrates similar to exam yesterday. No heart failure seen.
[2021-12-31] MEDS: SODIUM CHLORIDE 0.9% 1,000 ML IV SCH ×2 (05:30→11:19)
[2021-12-31] MEDS: carvediloL 12.5 MG TAB PO SCH ×3 (05:30→20:32)
--- NOTE | 2021-12-31 09:39 | P.CRDCN ---
History of Present Illness History of present illness: HISTORY OF PRESENTING ILLNESS This is a pleasant 46-year-old male past medical history significant for myocardial infarction, coronary artery disease status post stent placement he states in [place] in 2012 (unknown details), ischemic cardiomyopathy status post AICD in 2013, hypertension, dyslipidemia, type 2 diabetes, paroxysmal atrial fibrillation on Xarelto, former smoker. Recent diagnosis and admission for prostatitis on Ciprofloxacin. He follows with Dr. Cam hasn't seen last year. He did get his defib checked last year. We have been asked to see in consultation for congestive heart failure. Patient presents emergency department with complaints of episode of chest discomfort yesterday and chills. He states since his discharge on 12/23/21 He has been doing well. Last night had midsternal chest pressure/heaviness, non-radiating, non-exertional. Lasted 1 hour. No associated symptoms. No specific aggravating or alleviating factors. Presented to the ER due to pain similar to chest pain when he had his OK, felt very cold and had chills and was concerned. He denies any shortness of breath, lightheadedness, palpitations, dizziness, syncope or near syncope. On admission, patient was febrile temp 101 F. He states once his fever resolved his symptoms also resolved. DIAGNOSTICS EKG reveals Sinus tachycardia HR 129, short HI no acute ST-T wave abnormalities to suggest ischemia Telemetry tracings indicate sinus tachycardia Chest xray No heart failure,some coarsening of the intersitial markings. Laboratory reviewed, WBC 14, hemoglobin 13.5, platelets 308, troponin negative 3, proBNP 892, sodium 133, potassium 3.9, BUN 13, serum creatinine 0.6, UA positive infection Current home medications include metformin, glipizide, horizontal 0.5 mg twice a day, spironolactone 50 mg daily, Xarelto 20 mg nightly, insulin, Cipro, atorvastatin 80 mg nightly REVIEW OF SYSTEMS At the time of my exam: CONSTITUTIONAL: Denies fever or chills. CARDIOVASCULAR: Denies chest pain, shortness of breath, orthopnea, PND or palpitations. RESPIRATORY: Denies cough. GASTROINTESTINAL: Denies abdominal pain, diarrhea, constipation, nausea or vomiting. MUSCULOSKELETAL: Denies myalgias. NEUROLOGIC: Denies numbness, tingling, headacbe or weakness. ENDOCRINE: Denies fatigue, weight change, polydipsia or polyurina. GENITOURINARY: Denies burning, hematuria or urgency with micturation. HEMATOLOGIC: Denies history of anemia or bleeding. PHYSICAL EXAMINATION Blood pressure 98/62, heart rate 16, temp 98.7, oxygen saturation is 92% CONSTITUTIONAL: No apparent distress. HEENT: Head is normocephalic. Pupils are equal, round. Sclerae anicteric. Mucous membranes of the mouth are moist. No JVD. No carotid bruit. CHEST EXAMINATION: Lungs are diminished in the bases to auscultation. No chest wall tenderness is noted on palpation or with deep breathing. HEART EXAMINATION: Regular rate and rhythm. S1, S2 heard. No murmurs, gallops or rub. ABDOMEN: Soft, nontender. Positive bowel sounds. EXTREMITIES: 2+ peripheral pulses, no lower extremity edema and no calf tenderness. NEUROLOGIC EXAMINATION: Patient is awake, alert and oriented x3. ASSESSMENT Chest pain, atypical, acute coronary syndrome has been ruled out, could be related to ongoing infection Leukocytosis Recent admission for Prostatitis Lactic acidosis Sinus tachycardia, likely related to infection Febrile History of myocardial infarction Coronary artery disease status post stent placement he states in [place] in 2012 (unknown details) Ichemic cardiomyopathy with known EF 15% status post AICD in 2014 History of Hypertension, hypotensive inpatient Dyslipidemia Type 2 diabetes Paroxysmal atrial fibrillation on Xarelto PLAN Patient does not appear to be in acute heart failure. Acute coronary syndrome has been ruled out Obtain 2D echocardiogram and doppler study to assess cardiac structure and function. Continue aspirin, statin, Coreg, Xarelto, spironolactone Infectious disease consulted Stress test was discussed with the patient, he would prefer to do this as an outpatient, we will hold off on stress test at this time due to infection Further recommendations based on clinical course Close follow up with Dr. Moraes Nurse practitioner note has been reviewed by physician. Signing provider agrees with the documented findings, assessment, and plan of care. Past Medical History Past Medical History: Diabetes Mellitus, Hypertension, Myocardial Infarction ([place]), Neurologic Disorder Last Myocardial Infarction Date:: 2012 History of Any Multi-Drug Resistant Organisms: None Reported Past Surgical History: AICD Additional Past Surgical History / Comment(s): AICD IMPLANTED DECEMBER/2013 AT [facility] Past Anesthesia/Blood Transfusion Reactions: No Reported Reaction Type of Cardiac Device: Permanent Pacemaker, AICD Device Placement Date:: 12/2013 Past Psychological History: No Psychological Hx Reported Smoking Status: Former smoker Past Alcohol Use History: Rare Past Drug Use History: Marijuana - Past Family History Father Additional Family Medical History / Comment(s): BPH Medications and Allergies Home Medications Medication Instructions Recorded Confirmed Type Atorvastatin [Lipitor] 80 mg PO HS 12/15/14 12/30/21 History Insulin Detemir (Levemir) [Levemir] 46 unit SQ HS 12/15/14 12/30/21 History Omeprazole 40 mg PO HS 02/10/19 12/30/21 History Rivaroxaban [Xarelto] 20 mg PO HS 02/10/19 12/30/21 History Spironolactone 50 mg PO DAILY 02/10/19 12/30/21 History carvediloL [Coreg*] 12.5 mg PO BID 02/10/19 12/30/21 History glipiZIDE [Glucotrol] 10 mg PO BID-W/MEALS 02/10/19 12/30/21 History metFORMIN HCL [Glucophage] 1,000 mg PO BID-W/MEALS 12/20/21 12/30/21 History Acetaminophen Tab [Tylenol] 650 mg PO Q6HR PRN tab 12/23/21 12/30/21 Rx Ciprofloxacin HCl 500 mg PO BID #120 tablet 12/23/21 12/30/21 Rx Allergies Allergy/AdvReac Type Severity Reaction Status Date / Time amoxicillin Allergy Unknown Verified 12/30/21 22:35 Physical Exam Vitals: Vital Signs Temp Pulse Resp BP Pulse Ox 12/31/21 06:40 98.7 F 116 H 18 98/62 92 L 12/31/21 04:37 101.9 F H 128 H 22 104/63 92 L 12/31/21 03:30 101.3 F H 125 H 20 118/78 86 L 12/31/21 03:00 114 H 18 107/74 90 L 12/31/21 02:00 122 H 18 109/59 95 12/31/21 01:00 120 H 18 93/56 95 12/31/21 00:00 115 H 20 108/77 95 12/30/21 23:41 100.9 F H 12/30/21 23:00 125 H 22 136/91 95 12/30/21 22:00 126 H 28 H 141/87 95 12/30/21 21:44 98.2 F 148 H 28 H 147/88 94 L Intake and Output 12/30/21 12/31/21 12/31/21 22:59 06:59 14:59 Other: Weight 102.058 kg Results 12/31/21 03:08 12/31/21 03:08 Cardiac Enzymes 12/30/21 12/30/21 12/31/21 Range/Units 22:14 22:14 00:48 AST 19 (17-59) U/L Troponin I <0.012 0.015 (0.000-0.034) ng/mL 12/31/21 12/31/21 Range/Units 03:08 03:08 AST 20 (17-59) U/L Troponin I 0.017 (0.000-0.034) ng/mL Coagulation 12/30/21 Range/Units 22:14 PT 11.0 (9.0-12.0) sec APTT 23.3 (22.0-30.0) sec CBC 12/30/21 12/31/21 Range/Units 22:14 03:08 WBC 17.1 H 14.0 H (3.8-10.6) k/uL RBC 4.96 4.62 (4.30-5.90) m/uL Hgb 14.4 13.5 (13.0-17.5) gm/dL Hct 45.4 43.3 (39.0-53.0) % Plt Count 333 308 (150-450) k/uL Comprehensive Metabolic Panel 12/30/21 12/31/21 Range/Units 22:14 03:08 Sodium 137 133 L (137-145) mmol/L Potassium 4.7 3.9 (3.5-5.1) mmol/L Chloride 99 100 (98-107) mmol/L Carbon Dioxide 30 22 (22-30) mmol/L BUN 15 13 (9-20) mg/dL Creatinine 0.80 0.62 L (0.66-1.25) mg/dL Glucose 250 H 262 H (74-99) mg/dL Calcium 9.0 8.0 L (8.4-10.2) mg/dL AST 19 20 (17-59) U/L ALT 23 20 (4-49) U/L Alkaline Phosphatase 70 57 (38-126) U/L Total Protein 7.4 6.3 (6.3-8.2) g/dL Albumin 4.1 3.5 (3.5-5.0) g/dL Current Medications Generic Name Dose Route Start Last Admin Trade Name Freq PRN Reason Stop Dose Admin Acetaminophen 650 mg 12/30/21 23:13 12/31/21 05:25 Acetaminophen Tab 325 Mg Tab PO 650 mg Q6HR PRN Administration Mild Pain or Fever > 100.5 Atorvastatin Calcium 80 mg 12/31/21 21:00 Atorvastatin 80 Mg Tab PO HS [facility] Carvedilol 12.5 mg 12/31/21 01:15 12/31/21 05:30 Carvedilol 12.5 Mg Tab PO Not Given BID RAFAEL Levofloxacin 750 mg/ IV 150 mls @ 100 mls/hr 01/01/22 04:00 Solution IVPB Q24H [facility] Protocol Sodium Chloride 1,000 mls @ 75 mls/hr 12/30/21 23:15 12/31/21 05:30 Saline 0.9% IV Not Given .[id number] [facility] Insulin Aspart 0 unit 12/31/21 07:30 Insulin Aspart (Novolog) 100 Unit/Ml Vial SQ ACHS [facility] Protocol Insulin Detemir 46 unit 12/31/21 21:00 Insulin Detemir (Levemir) 100 Unit/Ml Syr SQ HS [facility] Morphine Sulfate 4 mg 12/30/21 23:13 Morphine Sulfate 4 Mg/Ml Syringe IV Q4HR PRN Severe Pain Naloxone HCl 0.2 mg 12/30/21 23:13 Naloxone 0.4 Mg/Ml 1 Ml Vial IV Q2M PRN Opioid Reversal Ondansetron HCl 4 mg 12/30/21 23:13 Ondansetron 4 Mg/2 Ml Vial IVP Q8HR PRN Nausea And Vomiting Pantoprazole Sodium 40 mg 12/31/21 21:00 Pantoprazole 40 Mg Tablet PO HS [facility] Rivaroxaban 20 mg 12/31/21 21:00 Rivaroxaban 20 Mg Tab PO HS [facility] Protocol Spironolactone 50 mg 12/31/21 09:00 Spironolactone 25 Mg Tab PO DAILY [facility] Intake and Output 12/30/21 12/31/21 12/31/21 22:59 06:59 14:59 Other: Weight 102.058 kg 12/31/21 03:08 12/31/21 03:08
[2021-12-31 09:56] LABS: Glucose,Whole Blood 231 mg/dL (75-99)
[2021-12-31] MEDS: SPIRONOLACTONE 25 MG TAB PO SCH (10:55)
[2021-12-31] MEDS: INSULIN ASPART (NovoLOG) 100 UNIT/ML VIAL SQ SCH ×4 (10:56→20:33)
[2021-12-31] MEDS ORDERED: IOPAMIDOL CONTRAST (ORAL USE) VIAL PO PRN (11:18)
[2021-12-31 13:56] LABS: Glucose,Whole Blood 259 mg/dL (75-99)
--- NOTE | 2021-12-31 14:26 | CT ---
EXAMINATION TYPE: CT pelvis w con DATE OF EXAM: 12/31/2021 COMPARISON: 12/20/2021 HISTORY: 46-year-old male follow-up Prostatitis TECHNIQUE: Contiguous axial scanning of the pelvis following administration of 100 ml Isovue 300 IV c ontrast. Delayed images through the bladder and coronal/sagittal reconstructions performed. CT DLP: 1254.4 mGycm Automated exposure control for dose reduction was used. FINDINGS: Visualized portions of the kidneys show no gross abnormality. Normal appendix. Mild stool in the visualized colon. Mild atherosclerotic calcifications infrarenal abdominal aorta. No dilated small bowel, free fluid, or free air seen. Bladder is urine distended. Left-sided pelvic phlebolith. 1 cm right perirectal lymph node, unchanged. Lymph node anterior to the lower pole of the right kidne y measures 9 mm, unchanged. Some additional scattered borderline sized mesenteric lymph nodes measure up to 9 mm. Consider short interval follow-up. Prostate gland mildly enlarged at 4.9 cm wide, not significantly changed. However, the midline fluid collection within the inferior aspect of the prostate gland extending into the posterior urethra is s maller measuring 3.5 x 1.8 x 2.3 cm. This is in comparison to 4.1 x 2.7 x 2.9 cm, previously. Heterog eneous hyperemia of the surrounding inferior prostatic tissue. Some borderline-sized inguinal lymph nodes measuring up to 1.7 cm on either side, increased from 1.4 cm, previously. Bones: Moderate to advanced degenerative disc disease L5-S1. Mild to moderate left neural foraminal s tenosis at L5-S1 secondary to facet arthropathy and disc osteophyte complex. IMPRESSION: 1. INFERIOR MIDLINE PROSTATIC ABSCESS PERSISTS BUT IS DECREASING IN SIZE (CURRENTLY 3.5 X 1.8 X 2.3 C M VERSUS 4.1 X 2.7 X 2.9 CM, PREVIOUSLY). 2. SCATTERED NONSPECIFIC ABDOMINAL, PERIRECTAL, AND INGUINAL LYMPH NODES. THE INGUINAL NODES ARE SLIG HTLY LARGE AT 1.7 CM VERSUS 1.4 CM, PREVIOUSLY. THESE MAY BE REACTIVE. SIX-MONTH FOLLOW-UP CT TO ENSU RE STABILITY/RESOLUTION.
--- NOTE | 2021-12-31 16:21 | P.GSCN ---
History of Present Illness Consult date: 12/31/21 Reason for Consult: Prosthetic abscess History of present illness: This is a 46-year-old male that presented to the hospital with chest pain, t achycardia, fevers and fatigue. He had a recent admission for a prostatic abscess, and he was started on IV antibiotic calyx, and transitioned to Cipro as an outpatient. He indicated he did notice improvement in his symptoms since starting antibiotics. But the chest chest pain and the fever was what brought him to the hospital. Denies any voiding difficulties or dysuria. Denies any gross hematuria. He is complaining of pelvic pain. Underwent a CT pelvis which showed evidence of a 3.5 x 1.8 x 2.3 prosthetic abscess in the prosthetic urethra, this has decreased in size compared to the CT from a week ago. At the abscess at that time measured 4.1 x 2.7 x 2.9 cm. He declined rectal exam, but indicated he had a rectal exam done by Dr. Mast which was within normal limits approximately 48 hours ago. No previous history of prostatitis. Since being admitted to the hospital he has remained afebrile Review of Systems - Constitutional Reports chills, Reports fever - Cardiovascular Reports chest pain, Reports palpitations, Reports shortness of breath - Respiratory Denies cough, Denies 7 - Gastrointestinal Reports as per HPI - Genitourinary Denies dysuria, Denies hematuria - Integumentary Denies rash, Denies unusual bruising - Neurological Denies headaches, Denies syncope Past Medical History Past Medical History: Coronary Artery Disease (CAD), Heart Failure, Diabetes Mellitus, Hyperlipidemia, Hypertension, Myocardial Infarction ([place]), Neurologic Disorder Additional Past Medical History / Comment(s): Pt recently admitted to [facility] on 12/20/21 with sepsis 2ndary to prostatitis. Other hx: IDDM type II, ne uropathy bilateral feet/legs, ischemic cardiomyopathy, Last Myocardial Infarction Date:: 2012 History of Any Multi-Drug Resistant Organisms: None Reported Past Surgical History: AICD, Heart Catheterization With Stent Additional Past Surgical History / Comment(s): AICD 2013 at [facility], PCI with stent 2012 in [place] Past Anesthesia/Blood Transfusion Reactions: No Reported Reaction Date of Last Stent Placement:: 2012 Type of Cardiac Device: Permanent Pacemaker, AICD Device Placement Date:: 12/2013 Smoking Status: Former smoker - Past Family History Father Family Medical History: Prostate Disorder Additional Family Medical History / Comment(s): BPH Medications and Allergies Home Medications Medication Instructions Recorded Confirmed Type Atorvastatin [Lipitor] 80 mg PO HS 12/15/14 12/30/21 History Insulin Detemir (Levemir) [Levemir] 46 unit SQ HS 12/15/14 12/30/21 History Omeprazole 40 mg PO HS 02/10/19 12/30/21 History Rivaroxaban [Xarelto] 20 mg PO HS 02/10/19 12/30/21 History Spironolactone 50 mg PO DAILY 02/10/19 12/30/21 History carvediloL [Coreg*] 12.5 mg PO BID 02/10/19 12/30/21 History glipiZIDE [Glucotrol] 10 mg PO BID-W/MEALS 02/10/19 12/30/21 History metFORMIN HCL [Glucophage] 1,000 mg PO BID-W/MEALS 12/20/21 12/30/21 History Acetaminophen Tab [Tylenol] 650 mg PO Q6HR PRN tab 12/23/21 12/30/21 Rx Ciprofloxacin HCl 500 mg PO BID #120 tablet 12/23/21 12/30/21 Rx Allergies Allergy/AdvReac Type Severity Reaction Status Date / Time amoxicillin Allergy Unknown Verified 12/30/21 22:35 lisinopril AdvReac Cough Verified 12/31/21 14:00 Surgical - Exam Vital Signs Temp Pulse Resp BP Pulse Ox 98.2 F 148 H 28 H 147/88 94 L 12/30/21 21:44 12/30/21 21:44 12/30/21 21:44 12/30/21 21:44 12/30/21 21:44 - General no distress, no pain - Eyes normal ocular movement, no pale - ENT normal nares - Respiratory normal expansion, normal respiratory effort - Abdomen Abdomen: soft, non tender - Psychiatric oriented to time, oriented to person, oriented to place Results - Labs 12/31/21 03:08 12/31/21 03:08 Abnormal Lab Results - Last 24 Hours (Table) 12/30/21 12/30/21 12/30/21 Range/Units 22:14 22:14 22:14 WBC 17.1 H (3.8-10.6) k/uL Neutrophils # 15.6 H (1.3-7.7) k/uL Lymphocytes # 0.5 L (1.0-4.8) k/uL Sodium (137-145) mmol/L Creatinine (0.66-1.25) mg/dL Glucose 250 H (74-99) mg/dL POC Glucose (mg/dL) (75-99) mg/dL Plasma Lactic Acid Ben 2.9 H* (0.7-2.0) mmol/L Calcium (8.4-10.2) mg/dL Magnesium 1.4 L (1.6-2.3) mg/dL Urine Protein (Negative) Urine Glucose (UA) (Negative) Urine Ketones (Negative) Urine Blood (Negative) Ur Leukocyte Esterase (Negative) Urine RBC (0-5) /hpf Urine WBC (0-5) /hpf Urine Mucus (None) /hpf 12/31/21 12/31/21 12/31/21 Range/Units 00:23 03:08 03:08 WBC 14.0 H (3.8-10.6) k/uL Neutrophils # 12.8 H (1.3-7.7) k/uL Lymphocytes # 0.4 L (1.0-4.8) k/uL Sodium 133 L (137-145) mmol/L Creatinine 0.62 L (0.66-1.25) mg/dL Glucose 262 H (74-99) mg/dL POC Glucose (mg/dL) (75-99) mg/dL Plasma Lactic Acid Ben (0.7-2.0) mmol/L Calcium 8.0 L (8.4-10.2) mg/dL Magnesium (1.6-2.3) mg/dL Urine Protein Trace H (Negative) Urine Glucose (UA) 4+ H (Negative) Urine Ketones Trace H (Negative) Urine Blood Moderate H (Negative) Ur Leukocyte Esterase Large H (Negative) Urine RBC 12 H (0-5) /hpf Urine WBC 173 H (0-5) /hpf Urine Mucus Rare H (None) /hpf 12/31/21 12/31/21 Range/Units 09:54 13:55 WBC (3.8-10.6) k/uL Neutrophils # (1.3-7.7) k/uL Lymphocytes # (1.0-4.8) k/uL Sodium (137-145) mmol/L Creatinine (0.66-1.25) mg/dL Glucose (74-99) mg/dL POC Glucose (mg/dL) 231 H 259 H (75-99) mg/dL Plasma Lactic Acid Ben (0.7-2.0) mmol/L Calcium (8.4-10.2) mg/dL Magnesium (1.6-2.3) mg/dL Urine Protein (Negative) Urine Glucose (UA) (Negative) Urine Ketones (Negative) Urine Blood (Negative) Ur Leukocyte Esterase (Negative) Urine RBC (0-5) /hpf Urine WBC (0-5) /hpf Urine Mucus (None) /hpf Microbiology - Last 24 Hours (Table) 12/31/21 00:23 Urine Culture - Preliminary Urine,Voided Diabetes panel 12/30/21 12/31/21 Range/Units 22:14 03:08 Sodium 137 133 L (137-145) mmol/L Potassium 4.7 3.9 (3.5-5.1) mmol/L Chloride 99 100 (98-107) mmol/L Carbon Dioxide 30 22 (22-30) mmol/L BUN 15 13 (9-20) mg/dL Creatinine 0.80 0.62 L (0.66-1.25) mg/dL Glucose 250 H 262 H (74-99) mg/dL Calcium 9.0 8.0 L (8.4-10.2) mg/dL AST 19 20 (17-59) U/L ALT 23 20 (4-49) U/L Alkaline Phosphatase 70 57 (38-126) U/L Total Protein 7.4 6.3 (6.3-8.2) g/dL Albumin 4.1 3.5 (3.5-5.0) g/dL Calcium panel 12/30/21 12/31/21 Range/Units 22:14 03:08 Calcium 9.0 8.0 L (8.4-10.2) mg/dL Phosphorus 3.2 (2.5-4.5) mg/dL Albumin 4.1 3.5 (3.5-5.0) g/dL Pituitary panel 12/30/21 12/31/21 Range/Units 22:14 03:08 Sodium 137 133 L (137-145) mmol/L Potassium 4.7 3.9 (3.5-5.1) mmol/L Chloride 99 100 (98-107) mmol/L Carbon Dioxide 30 22 (22-30) mmol/L BUN 15 13 (9-20) mg/dL Creatinine 0.80 0.62 L (0.66-1.25) mg/dL Glucose 250 H 262 H (74-99) mg/dL Calcium 9.0 8.0 L (8.4-10.2) mg/dL Adrenal panel 12/30/21 12/31/21 Range/Units 22:14 03:08 Sodium 137 133 L (137-145) mmol/L Potassium 4.7 3.9 (3.5-5.1) mmol/L Chloride 99 100 (98-107) mmol/L Carbon Dioxide 30 22 (22-30) mmol/L BUN 15 13 (9-20) mg/dL Creatinine 0.80 0.62 L (0.66-1.25) mg/dL Glucose 250 H 262 H (74-99) mg/dL Calcium 9.0 8.0 L (8.4-10.2) mg/dL Total Bilirubin 0.8 0.7 (0.2-1.3) mg/dL AST 19 20 (17-59) U/L ALT 23 20 (4-49) U/L Alkaline Phosphatase 70 57 (38-126) U/L Total Protein 7.4 6.3 (6.3-8.2) g/dL Albumin 4.1 3.5 (3.5-5.0) g/dL - Imaging CT scan - pelvis: image reviewed (3.5 cm prostatic urethral abscess) Assessment and Plan Assessment: 56-year-old male admitted to the hospital with chest pain, and a prostatic abscess. He had a recent admission on December 20 the prostatic abscess, CT was obtained that showed evidence of a 4.1 cm prostatic abscess. He was discharged home with Cipro. He presented back to chest pain or fevers. CT was obtained which showed that the abscess has decreased in size and measures 3.5 cm. UA on presentation was concerning for UTI. Since admission he's been afebrile. -At this time given his clinical improvement since admission, and the decrease in abscess size we'll hold off on any surgical intervention. Recommend to continue antibiotics. If patient continues to spike fevers at that point we'll consider a transurethral unroofing of the prostatic abscess.
[2021-12-31 16:23] LABS: Glucose,Whole Blood 306 mg/dL (75-99)
--- NOTE | 2021-12-31 17:50 | ECHOF ---
Referral Reason:chest pain MEASUREMENTS -------- HEIGHT: 182.9 cm WEIGHT: 104.3 kg BP: RVIDd: 3.3 cm (< 3.3) IVSd: 0.8 cm (0.6 - 1.1) LVIDd: 6.1 cm (3.9 - 5.3) LVPWd: 1.2 cm (0.6 - 1.1) IVSs: 1.3 cm LVIDs: 4.9 cm LVPWs: 1.6 cm LA Diam: 3.8 cm (2.7 - 3.8) LAESV Index (A-L): 20.59 ml/m Ao Diam: 2.8 cm (2.0 - 3.7) AV Cusp: 1.9 cm (1.5 - 2.6) MV EXCURSION: 19.089 mm (> 18.000) MV EF SLOPE: 75 mm/s (70 - 150) EPSS: 1.7 cm MV E [place]: 1.04 m/s MV DecT: 209 ms MV A [place]: 0.44 m/s MV E/A Ratio: 2.37 RAP: 5.00 mmHg RVSP: 33.95 mmHg FINDINGS -------- Sinus rhythm. AICD This was a technically adequate study. The left ventricular size is normal. There is borderline concentric left ventricular hypertrophy. Overall left ventricular systolic function is severely impaired with, an EF between 20 - 25 %. Mid anterior LV wall motion is hypokinetic. Apical anterior LV wall motion is akinetic. Apical lat eral LV wall motion is akinetic. Apical inferior LV wall motion is akinetic. Apical septum LV w all motion is akinetic. The right ventricle is mildly enlarged. Normal LA size by volume 22+/-6 ml/m2. The right atrial size is normal. 3 ml of Lumason was utilized for enhancement of images. Interatrial and interventricular septum intact. The aortic valve is trileaflet, and appears structurally normal. No aortic stenosis or regurgitation. The mitral valve is normal. There is trace mitral regurgitation. The tricuspid valve appears structurally normal. Mild tricuspid regurgitation present. There is m ild pulmonary hypertension. The right ventricular systolic pressure, as measured by Doppler, is 33. 95mmHg. There is no pulmonic regurgitation present. The aortic root size is normal. Normal inferior vena cava with normal inspiratory collapse consistent with estimated right atrial pre ssure of 5 mmHg. There is no pericardial effusion. CONCLUSIONS -------- 1. AICD 2. The left ventricular size is normal. 3. There is borderline concentric left ventricular hypertrophy. 4. Overall left ventricular systolic function is severely impaired with, an EF between 20 - 25 %. 5. Mid anterior LV wall motion is hypokinetic. 6. Apical anterior LV wall motion is akinetic. 7. Apical lateral LV wall motion is akinetic. 8. Apical inferior LV wall motion is akinetic. 9. Apical septum LV wall motion is akinetic. 10. The right ventricle is mildly enlarged. 11. 3 ml of Lumason was utilized for enhancement of images. 12. The aortic valve is trileaflet, and appears structurally normal. No aortic stenosis or regurgitat ion. 13. There is trace mitral regurgitation. 14. Mild tricuspid regurgitation present. 15. There is mild pulmonary hypertension. 16. There is no pericardial effusion. DRUM TESTER: Ilda Guan RDCS
[2021-12-31 20:23] LABS: Glucose,Whole Blood 144 mg/dL (75-99)
[2021-12-31] MEDS: ATORVASTATIN 80 MG TAB PO SCH (20:32)
[2021-12-31] MEDS: INSULIN DETEMIR (LEVEMIR) 100 UNIT/ML SYR SQ SCH (20:32)
[2021-12-31] MEDS: PANTOPRAZOLE 40 MG TABLET PO SCH (20:32)
[2021-12-31] MEDS: RIVAROXABAN 20 MG TAB PO SCH (20:32)
--- NOTE | 2021-12-31 20:54 | P.CONS ---
History of Present Illness - Reason for Consult Consult date: 12/31/21 Prostatitis Requesting physician: Segundo Martinez - Chief Complaint Chest pain shortness of breath x one day - History of Present Illness Patient is a 46-year-old male who was recently admitted at this facility and was treated with a prostatitis/prostate abscess evaluated by urology services only in addition to the admitting team patient did have blood cultures were negative no urine cultures were done abscess was not drained and the patient was discharged home on oral Cipro, patient presenting to the ER last night complaining of chest pain palpitation he did have a shortness of breath also complaining of fever and chills and pelvic pain and concerning that he was not getting better patient on presentation to the ER did have a fever 100.9 subsequent spike a fever of 101.91 F early this morning, patient was tachycardic did have white count 17.1 with a left shift patient did have a normal creatinine liver enzymes were normal did have positive UA with large leukocyte estrace 117 WBC cultures are currently pending blood cultures obtained which are currently pending patient was started on Levaquin admitted to hospital infectious disease was consulted for further management of antibiotic therapy, patient did have a chest x-ray new patchy right lower lobe opacity may reflect atelectasis patient did have a pelvic CT inferior [place] prostatic abscess present but slightly decreased in size Review of Systems Positive point has been mentioned in the HPI rest of the systems are negative Past Medical History Past Medical History: Coronary Artery Disease (CAD), Heart Failure, Diabetes Mellitus, Hyperlipidemia, Hypertension, Myocardial Infarction ([place]), Neurologic Disorder Additional Past Medical History / Comment(s): Pt recently admitted to [facility] on with sepsis 2ndary to prostatitis. Other hx: IDDM type II, neuropathy bilateral feet/legs, ischemic cardiomyopathy, Last Myocardial Infarction Date:: 2012 History of Any Multi-Drug Resistant Organisms: None Reported Past Surgical History: AICD, Heart Catheterization With Stent Additional Past Surgical History / Comment(s): AICD 2013 at [facility], PCI with stent 2012 in [place] Past Anesthesia/Blood Transfusion Reactions: No Reported Reaction Date of Last Stent Placement:: 2012 Type of Cardiac Device: Permanent Pacemaker, AICD Device Placement Date:: 12/2013 Smoking Status: Former smoker - Past Family History Father Family Medical History: Prostate Disorder Additional Family Medical History / Comment(s): BPH Medications and Allergies Home Medications Medication Instructions Recorded Confirmed Type Atorvastatin [Lipitor] 80 mg PO HS 12/15/14 12/30/21 History Insulin Detemir (Levemir) [Levemir] 46 unit SQ HS 12/15/14 12/30/21 History Omeprazole 40 mg PO HS 02/10/19 12/30/21 History Rivaroxaban [Xarelto] 20 mg PO HS 02/10/19 12/30/21 History Spironolactone 50 mg PO DAILY 02/10/19 12/30/21 History carvediloL [Coreg*] 12.5 mg PO BID 02/10/19 12/30/21 History glipiZIDE [Glucotrol] 10 mg PO BID-W/MEALS 02/10/19 12/30/21 History metFORMIN HCL [Glucophage] 1,000 mg PO BID-W/MEALS 12/20/21 12/30/21 History Acetaminophen Tab [Tylenol] 650 mg PO Q6HR PRN tab 12/23/21 12/30/21 Rx Ciprofloxacin HCl 500 mg PO BID #120 tablet 12/23/21 12/30/21 Rx Allergies Allergy/AdvReac Type Severity Reaction Status Date / Time amoxicillin Allergy Unknown Verified 12/30/21 22:35 lisinopril AdvReac Cough Verified 12/31/21 14:00 Physical Exam Vitals: Vital Signs Temp Pulse Pulse Resp BP BP Pulse Ox 12/31/21 13:15 97.6 F 108 H 18 106/70 95 12/31/21 11:19 100.3 F H 123 H 20 119/76 96 12/31/21 06:40 98.7 F 116 H 18 98/62 92 L 12/31/21 04:37 101.9 F H 128 H 22 104/63 92 L 12/31/21 03:30 101.3 F H 125 H 20 118/78 86 L 12/31/21 03:13 97.9 F 100 17 98/68 95 12/31/21 03:00 114 H 18 107/74 90 L 12/31/21 02:00 122 H 18 109/59 95 12/31/21 01:00 120 H 18 93/56 95 12/31/21 00:00 115 H 20 108/77 95 12/30/21 23:41 100.9 F H 12/30/21 23:00 125 H 22 136/91 95 12/30/21 22:00 126 H 28 H 141/87 95 12/30/21 21:44 98.2 F 148 H 28 H 147/88 94 L Intake and Output 12/30/21 12/31/21 12/31/21 22:59 06:59 14:59 Other: Weight 102.058 kg 102.058 kg 102.058 kg GENERAL DESCRIPTION: Middle-aged male lying in bed, no distress. No tachypnea or accessory muscle of respiration use. HEENT: Shows Pallor , no scleral icterus. Oral mucous membrane is dry. No pha ryngeal erythema or thrush NECK: Trachea central, no thyromegaly. LUNGS: Unlabored breathing. Clear to auscultation anteriorly. No wheeze or crackle. HEART: S1, S2, regular rate and rhythm. No loud murmur ABDOMEN: Soft, no tenderness , guarding or rigidity, no organomegaly EXTREMITIES: No edema of feet. SKIN: No rash, no masses palpable. NEUROLOGICAL: The patient is awake, alert, oriented x3, mood and affect normal. Results CBC & Chem 7: 12/31/21 03:08 12/31/21 03:08 Labs: Abnormal Lab Results - Last 24 Hours (Table) 12/30/21 12/30/21 12/30/21 Range/Units 22:14 22:14 22:14 WBC 17.1 H (3.8-10.6) k/uL Neutrophils # 15.6 H (1.3-7.7) k/uL Lymphocytes # 0.5 L (1.0-4.8) k/uL Sodium (137-145) mmol/L Creatinine (0.66-1.25) mg/dL Glucose 250 H (74-99) mg/dL POC Glucose (mg/dL) (75-99) mg/dL Plasma Lactic Acid Ben 2.9 H* (0.7-2.0) mmol/L Calcium (8.4-10.2) mg/dL Magnesium 1.4 L (1.6-2.3) mg/dL Urine Protein (Negative) Urine Glucose (UA) (Negative) Urine Ketones (Negative) Urine Blood (Negative) Ur Leukocyte Esterase (Negative) Urine RBC (0-5) /hpf Urine WBC (0-5) /hpf Urine Mucus (None) /hpf 12/31/21 12/31/21 12/31/21 Range/Units 00:23 03:08 03:08 WBC 14.0 H (3.8-10.6) k/uL Neutrophils # 12.8 H (1.3-7.7) k/uL Lymphocytes # 0.4 L (1.0-4.8) k/uL Sodium 133 L (137-145) mmol/L Creatinine 0.62 L (0.66-1.25) mg/dL Glucose 262 H (74-99) mg/dL POC Glucose (mg/dL) (75-99) mg/dL Plasma Lactic Acid Ben (0.7-2.0) mmol/L Calcium 8.0 L (8.4-10.2) mg/dL Magnesium (1.6-2.3) mg/dL Urine Protein Trace H (Negative) Urine Glucose (UA) 4+ H (Negative) Urine Ketones Trace H (Negative) Urine Blood Moderate H (Negative) Ur Leukocyte Esterase Large H (Negative) Urine RBC 12 H (0-5) /hpf Urine WBC 173 H (0-5) /hpf Urine Mucus Rare H (None) /hpf 12/31/21 12/31/21 Range/Units 09:54 13:55 WBC (3.8-10.6) k/uL Neutrophils # (1.3-7.7) k/uL Lymphocytes # (1.0-4.8) k/uL Sodium (137-145) mmol/L Creatinine (0.66-1.25) mg/dL Glucose (74-99) mg/dL POC Glucose (mg/dL) 231 H 259 H (75-99) mg/dL Plasma Lactic Acid Ben (0.7-2.0) mmol/L Calcium (8.4-10.2) mg/dL Magnesium (1.6-2.3) mg/dL Urine Protein (Negative) Urine Glucose (UA) (Negative) Urine Ketones (Negative) Urine Blood (Negative) Ur Leukocyte Esterase (Negative) Urine RBC (0-5) /hpf Urine WBC (0-5) /hpf Urine Mucus (None) /hpf Microbiology - Last 24 Hours (Table) 12/31/21 00:23 Urine Culture - Preliminary Urine,Voided Assessment and Plan (1) Sepsis Current Visit: Yes Status: Acute Code(s): A41.9 - SEPSIS, UNSPECIFIED ORGANISM SNOMED Code(s): 34809019 Plan: 1patient presented to hospital with sepsis and this did have fever elevated white count tachycardia source likely prostatic abscess in this patient failing outpatient oral Cipro therapy high clinical suspicious for quinolone resistant pathogen. 2amoxicillin allergy as a child with no clear reaction clinical doubt anaphylaxis 3-urology evaluation for possible drainage of the abscess and deep cultures 4-discontinue Levaquin 5-start the patient Rocephin 2 g daily We will follow on clinical condition and cultures to further adjust medication if needed Thank you for this consultation will follow this patient along with you Time with Patient: Greater than 30
[2022-01-01] MEDS: BENZONATATE 100 MG CAP PO PRN ×4 (00:06→23:39)
[2022-01-01] MEDS ORDERED: LEVOFLOXACIN 750MG-D5W PMX 750 MG in DEXTROSE/WATER 1 150ML.BAG IVPB SCH (04:00)
[2022-01-01 06:20] LABS: Glucose,Whole Blood 155 mg/dL (75-99)
[2022-01-01] MEDS: INSULIN ASPART (NovoLOG) 100 UNIT/ML VIAL SQ SCH ×4 (06:23→20:38)
[2022-01-01] MEDS: SODIUM CHLORIDE 0.9% 1,000 ML IV SCH ×2 (06:24→11:58)
[2022-01-01] MEDS: ASPIRIN 81 MG PO SCH (07:56)
[2022-01-01] MEDS: SPIRONOLACTONE 25 MG TAB PO SCH (07:57)
[2022-01-01] MEDS: carvediloL 12.5 MG TAB PO SCH ×2 (07:57→20:38)
[2022-01-01 11:30] LABS: Glucose,Whole Blood 177 mg/dL (75-99)
--- NOTE | 2022-01-01 12:16 | P.PN ---
Subjective This is a pleasant 46-year-old male past medical history significant for myocardial infarction, coronary artery disease status post stent placement he states in [place] in 2013 (unknown details), ischemic cardiomyopathy status post AICD in 2013, hypertension, dyslipidemia, type 2 diabetes, paroxysmal atrial fibrillation on Xarelto, former smoker. Recent diagnosis and admission for prostatitis on Ciprofloxacin. He follows with Dr. Cam hasn't seen last year. He did get his defib checked last year. We have been asked to see in consultation for congestive heart failure. Patient presents emergency department with complaints of episode of chest discomfort yesterday and chills. He states since his discharge on 12/23/21 He has been doing well. Last night had midsternal chest pressure/heaviness, non-radiating, non-exertional. Lasted 1 hour. No associated symptoms. No specific aggravating or alleviating factors. Presented to the ER due to pain similar to chest pain when he had his MO, felt very cold and had chills and was concerned. He denies any shortness of breath, lightheadedness, palpitations, dizziness, syncope or near syncope. On admission, patient was febrile temp 101 F. He states once his fever resolved his symptoms also resolved. DIAGNOSTICS EKG reveals Sinus tachycardia HR 129, short PA no acute ST-T wave abnormalities to suggest ischemia Chest xray No heart failure,some coarsening of the intersitial markings. Laboratory reviewed, WBC 14, hemoglobin 13.5, platelets 308, troponin negative 3, proBNP 892, sodium 133, potassium 3.9, BUN 13, serum creatinine 0.6, UA positive infection Current home medications include metformin, glipizide, horizontal 0.5 mg twice a day, spironolactone 50 mg daily, Xarelto 20 mg nightly, insulin, Cipro, atorvastatin 80 mg nightly 01/01/2022 Patient seen and examined at bedside, distress. He denies any further chest pain. He denies any shortness of breath. Vital signs are stable. Tachycardia is improved. Patient underwent pelvis CT which revealed inferior midline prostatic abscess persists but is decreased in size. Echocardiogram revealed EF of 5 percent, wall motion abnormalities, mild tricuspid regurgitation. Labs, blood cultures negative growth to date. PHYSICAL EXAMINATION Blood pressure 100/65, heart rate 91, afebrile, oxygen saturations 95% on 2 L nasal cannula CONSTITUTIONAL: No apparent distress. HEENT: Neck Supple. No JVD. No carotid bruit. CHEST EXAMINATION: Lungs are diminished in the bases to auscultation. No chest wall tenderness is noted on palpation or with deep breathing. HEART EXAMINATION: Regular rate and rhythm. S1, S2 heard. No murmurs, gallops or rub. ABDOMEN: Soft, nontender. Positive bowel sounds. EXTREMITIES: 2+ peripheral pulses, no lower extremity edema and no calf tenderness. NEUROLOGIC EXAMINATION: Patient is awake, alert and oriented x3. ASSESSMENT Chest pain, atypical, acute coronary syndrome has been ruled out, could be related to ongoing infection Leukocytosis Recent admission for Prostatitis Lactic acidosis Sinus tachycardia, likely related to infection Febrile History of myocardial infarction Coronary artery disease status post stent placement he states in [place] in 2012 (unknown details) Ichemic cardiomyopathy with known EF 15% status post AICD in 2013 History of Hypertension, hypotensive inpatient Dyslipidemia Type 2 diabetes Paroxysmal atrial fibrillation on Xarelto PLAN Patient does not appear to be in acute heart failure. Acute coronary syndrome has been ruled out Continue aspirin, statin, Coreg, Xarelto, spironolactone Infectious disease following Stress test was discussed with the patient, he would prefer to do this as an outpatient, we will hold off on stress test at this time due to infection. And recommend Follow up with Dr. Moraes outpatient in 1 week. We will follow the patient as needed. Please reconsult if needed. Nurse practitioner note has been reviewed by physician. Signing provider agrees with the documented findings, assessment, and plan of care. Objective - Vital Signs Vital signs: Vital Signs Temp 98.3 F 01/01/22 11:24 Pulse 91 01/01/22 11:24 Resp 17 01/01/22 11:24 BP 100/65 01/01/22 11:24 Pulse Ox 95 01/01/22 11:24 Intake & Output 12/31/21 01/01/22 01/01/22 18:59 06:59 18:59 Intake Total 120 Output Total 0 Balance 120 Weight 102.058 kg Intake: Oral 120 Output: Urine 0 Stool 0 Urine/Stool Mix 0 Other: # Voids 0 1 - Labs CBC & Chem 7: 12/31/21 03:08 12/31/21 03:08 Labs: Abnormal Lab Results - Last 24 Hours (Table) 12/31/21 12/31/21 12/31/21 Range/Units 13:55 16:22 20:22 POC Glucose (mg/dL) 259 H 306 H 144 H (75-99) mg/dL 01/01/22 01/01/22 Range/Units 06:12 11:28 POC Glucose (mg/dL) 155 H 177 H (75-99) mg/dL Microbiology - Last 24 Hours (Table) 12/31/21 00:23 Urine Culture - Final Urine,Voided 12/31/21 03:08 Blood Culture - Preliminary Blood No Growth after 24 hours
--- NOTE | 2022-01-01 12:19 | P.PN ---
Subjective Progress Note Date: 01/01/22 no acute overnight events, denies any dysuria or pelvic pain this morning. Urine culture showed no growth. Objective - Vital Signs Vital signs: Vital Signs Temp 98.3 F 01/01/22 11:24 Pulse 91 01/01/22 11:24 Resp 17 01/01/22 11:24 BP 100/65 01/01/22 11:24 Pulse Ox 95 01/01/22 11:24 Intake & Output 12/31/21 01/01/22 01/01/22 18:59 06:59 18:59 Intake Total 120 Output Total 0 Balance 120 Weight 102.058 kg Intake: Oral 120 Output: Urine 0 Stool 0 Urine/Stool Mix 0 Other: # Voids 0 1 - Constitutional General appearance: Present: no acute distress - Psychiatric Psychiatric: Present: A&O x's 3 - Labs CBC & Chem 7: 12/31/21 03:08 12/31/21 03:08 Labs: Abnormal Lab Results - Last 24 Hours (Table) 12/31/21 12/31/21 12/31/21 Range/Units 13:55 16:22 20:22 POC Glucose (mg/dL) 259 H 306 H 144 H (75-99) mg/dL 01/01/22 01/01/22 Range/Units 06:12 11:28 POC Glucose (mg/dL) 155 H 177 H (75-99) mg/dL Microbiology - Last 24 Hours (Table) 12/31/21 00:23 Urine Culture - Final Urine,Voided 12/31/21 03:08 Blood Culture - Preliminary Blood No Growth after 24 hours Assessment and Plan Assessment: 56-year-old male admitted to the hospital with chest pain, and a prostatic abscess. He had a recent admission on December 20 the prostatic abscess, CT was obtained that showed evidence of a 4.1 cm prostatic abscess. He was discharged home with Cipro. He presented back to chest pain or fevers. CT was obtained which showed that the abscess has decreased in size and measures 3.5 cm. UA on presentation was concerning for UTI. Since admission he's been afebrile, WBC is trending down -At this time given his clinical improvement since admission, and the decrease in abscess size we'll hold off on any surgical intervention. Recommend to continue antibiotics. If patient continues to spike fevers at that point we'll consider a transurethral unroofing of the prostatic abscess. -he is okay to be discharged from urology standpoint, can follow-up with Dr. Mast in 2 weeks. Advised him to complete his prescribed course of antibiotics from his previous admission
--- NOTE | 2022-01-01 14:58 | P.PN ---
Subjective Patient was examined at bedside today not complaining of any new symptom talked. Patient denies any episodes of fever, chills, nausea or vomiting. Pain is also well controlled. Objective - Vital Signs Vital signs: Vital Signs Temp 98.3 F 01/01/22 11:24 Pulse 91 01/01/22 11:24 Resp 17 01/01/22 11:24 BP 100/65 01/01/22 11:24 Pulse Ox 95 01/01/22 11:24 Intake & Output 12/31/21 01/01/22 01/01/22 18:59 06:59 18:59 Intake Total 120 Output Total 0 Balance 120 Weight 102.058 kg Intake: Oral 120 Output: Urine 0 Stool 0 Urine/Stool Mix 0 Other: # Voids 0 1 - Exam Constitutional: No acute distress, conversant, pleasant Eyes: Anicteric sclerae, moist conjunctiva, Pupils equal round reactive to light ENMT: NC/AT Oropharynx clear, no erythema, or exudates Neck: Supple, FROM, no masses, or JVD No carotid bruits No thyromegaly Lungs: Clear to auscultation Clear to percussion Normal respiratory effort, no accessory muscle use Cardiovascular: Heart tachycardia No murmurs, gallops, or rubs No peripheral edema Abdominal: Soft Nontender, no guarding, rebound or rigidity Abdomen moving with respiration Normoactive bowel sounds No hepatomegaly, No splenomegaly No palpable mass No abdominal wall hernia noted Skin: warm to the touch, otherwise normal tone, texture, turgor Extremities: No digital cyanosis No clubbing Pedal pulses intact and symmetrical Radial pulses intact and symmetrical No calf tenderness Psychiatric: Alert and oriented to person, place and time - Labs CBC & Chem 7: 12/31/21 03:08 12/31/21 03:08 Labs: Abnormal Lab Results - Last 24 Hours (Table) 12/31/21 12/31/21 01/01/22 Range/Units 16:22 20:22 06:12 POC Glucose (mg/dL) 306 H 144 H 155 H (75-99) mg/dL 01/01/22 Range/Units 11:28 POC Glucose (mg/dL) 177 H (75-99) mg/dL Microbiology - Last 24 Hours (Table) 12/31/21 00:23 Urine Culture - Final Urine,Voided 04/07/22 03:08 Blood Culture - Preliminary Blood No Growth after 24 hours Assessment and Plan Assessment: Assessment: #1 sepsis secondary to prostatitis #2 lactic acidosis secondary to above resolved #3 chest pain rule out ACS #4 diabetes mellitus type 2 #5 atrial fibrillation on anticoagulation Plan: -Admit to medicine for close monitoring -Aspiration/fall precaution -Urology evaluated not recommending transrectal ultrasound -Cardiogenic board recommending stress test outpatient. -Continue with IV Rocephin pending final recommendations from ID. DVT px: [email or web address]
--- NOTE | 2022-01-01 16:13 | P.PN ---
Subjective Progress Note Date: 01/01/22 Principal diagnosis: Prostatitis/prostatitic abscess Patient is a 46-year-old male who was recently admitted this essentially and was treated for prostatitis/abscess for presenting back to the hospital with fever chest pain some shortness of breath concerning for possible failure of oral ciprofloxacin therapy. On today's evaluation that is 01/01/2022, the patient denies having any fever or any chills, the patient overall is feeling better the patient did tolerate Ro cephin without any problem with chest pain shortness with a cough the pelvic pain has improved no burning or frequency of urine or diarrhea Objective - Vital Signs Vital signs: Vital Signs Temp 98.3 F 01/01/22 11:24 Pulse 91 01/01/22 11:24 Resp 17 01/01/22 11:24 BP 100/65 01/01/22 11:24 Pulse Ox 95 01/01/22 11:24 Intake & Output 12/31/21 01/01/22 01/01/22 18:59 06:59 18:59 Intake Total 120 Output Total 0 Balance 120 Weight 102.058 kg Intake: Oral 120 Output: Urine 0 Stool 0 Urine/Stool Mix 0 Other: # Voids 0 1 - Exam GENERAL DESCRIPTION: Middle-aged male lying in bed in no distress RESPIRATORY SYSTEM: Unlabored breathing , decreased breath sounds at bases HEART: S1 S2 regular rate and rhythm , ABDOMEN: Soft , no tenderness EXTREMITIES: No edema feet - Labs CBC & Chem 7: 12/31/21 03:08 12/31/21 03:08 Labs: Abnormal Lab Results - Last 24 Hours (Table) 12/31/21 12/31/21 12/31/21 Range/Units 13:55 16:22 20:22 POC Glucose (mg/dL) 259 H 306 H 144 H (75-99) mg/dL 01/01/22 01/01/22 Range/Units 06:12 11:28 POC Glucose (mg/dL) 155 H 177 H (75-99) mg/dL Microbiology - Last 24 Hours (Table) 12/31/21 00:23 Urine Culture - Final Urine,Voided 12/31/21 03:08 Blood Culture - Preliminary Blood No Growth after 24 hours Assessment and Plan (1) Sepsis Current Visit: Yes Status: Acute Code(s): A41.9 - SEPSIS, UNSPECIFIED ORGANISM SNOMED Code(s): 29599167 Plan: 1patient presented to hospital with sepsis and this did have fever elevated white count tachycardia source likely prostatic abscess in this patient failing outpatient oral Cipro therapy high clinical suspicious for quinolone resistant pathogen. 2amoxicillin allergy as a child with no clear reaction clinical doubt anaphylaxis, patient did tolerated Rocephin without any problem 3-urology recommended against drainage of the abscess on the basis of clinical improvement on the CT 4-Patient to continue with Rocephin 2 g daily and if continued to improve may finish therapy with oral Ceftin 500 mg twice a day for 2 weeks discussed with the admitting team and close outpatient follow-up Time with Patient: Less than 30
[2022-01-01 16:23] LABS: Glucose,Whole Blood 151 mg/dL (75-99)
[2022-01-01 20:13] LABS: Glucose,Whole Blood 287 mg/dL (75-99)
[2022-01-01] MEDS: RIVAROXABAN 20 MG TAB PO SCH (20:38)
[2022-01-01] MEDS: INSULIN DETEMIR (LEVEMIR) 100 UNIT/ML SYR SQ SCH (20:38)
[2022-01-01] MEDS: PANTOPRAZOLE 40 MG TABLET PO SCH (20:38)
[2022-01-01] MEDS: ATORVASTATIN 80 MG TAB PO SCH (20:38)
[2022-01-02] MEDS: SODIUM CHLORIDE 0.9% 1,000 ML IV SCH ×2 (04:24→13:20)
[2022-01-02 06:18] LABS: Glucose,Whole Blood 144 mg/dL (75-99)
[2022-01-02] MEDS: INSULIN ASPART (NovoLOG) 100 UNIT/ML VIAL SQ SCH ×2 (06:32→11:55)
[2022-01-02 08:07] LABS: HCT 43.6 % (39.0-53.0); HGB 13.8 gm/dL (13.0-17.5); MCH 29.5 pg (25.0-35.0); MCHC 31.6 g/dL (31.0-37.0); MCV 93.3 fL (80.0-100.0); Mean Platelet Volume 7.9; Platelet Count 305 k/uL (150-450); RBC 4.68 m/uL (4.30-5.90); RDW 12.7 % (11.5-15.5); WBC 9.6 k/uL (3.8-10.6)
[2022-01-02] MEDS: SPIRONOLACTONE 25 MG TAB PO SCH (09:07)
[2022-01-02] MEDS: BENZONATATE 100 MG CAP PO PRN (09:07)
[2022-01-02] MEDS: carvediloL 12.5 MG TAB PO SCH (09:07)
[2022-01-02] MEDS: ASPIRIN 81 MG PO SCH (09:07)
[2022-01-02 11:31] LABS: Glucose,Whole Blood 263 mg/dL (75-99)
--- NOTE | 2022-01-02 11:55 | P.PN ---
Subjective Progress Note Date: 01/02/22 no acute overnight events, denies any dysuria or pelvic pain this . Urine culture showed no growth. Remains afebrile Objective - Vital Signs Vital signs: Vital Signs Temp 98.4 F 01/02/22 08:00 Pulse 97 01/02/22 08:00 Resp 18 01/02/22 08:00 BP 111/74 01/02/22 08:00 Pulse Ox 92 L 01/02/22 08:00 Intake & Output 01/01/22 01/02/22 01/02/22 18:59 06:59 18:59 Other: # Voids 2 1 - Constitutional General appearance: Present: no acute distress - Gastrointestinal General gastrointestinal: Present: soft. Absent: distended, tenderness - Psychiatric Psychiatric: Present: A&O x's 3 - Labs CBC & Chem 7: 01/02/22 07:41 12/31/21 03:08 Labs: Abnormal Lab Results - Last 24 Hours (Table) 01/01/22 01/01/22 01/02/22 Range/Units 16:21 20:03 06:13 POC Glucose (mg/dL) 151 H 287 H 144 H (75-99) mg/dL 01/02/22 Range/Units 11:30 POC Glucose (mg/dL) 263 H (75-99) mg/dL Microbiology - Last 24 Hours (Table) 12/31/21 03:08 Blood Culture - Preliminary Blood No Growth after 48 hours 12/31/21 00:23 Urine Culture - Final Urine,Voided Assessment and Plan Assessment: 56-year-old male admitted to the hospital with chest pain, and a prostatic abscess. He had a recent admission on December 20 the prostatic abscess, CT was obtained that showed evidence of a 4.1 cm prostatic abscess. He was discharged home with Cipro. He presented back to chest pain or fevers. CT was obtained which showed that the abscess has decreased in size and measures 3.5 cm. urine culture showed no growth. Since admission he's been afebrile, WBC is trending down -At this time given his clinical improvement since admission, and the decrease in abscess size we'll hold off on any surgical intervention. Recommend to continue antibiotics. -he is okay to be discharged from urology standpoint, can follow-up with Dr. Mast in 2 weeks. Advised him to complete his prescribed course of antibiotics from his previous admission
[2022-01-02 12:26] VITALS: BP 107/60; PULSE 94; RESP 16; TEMP 98.3
--- NOTE | 2022-01-02 15:34 | P.PN ---
Subjective Progress Note Date: 01/02/22 Principal diagnosis: Prostatitis/prostatitic abscess Patient is a 46-year-old male who was recently admitted this essentially and was treated for prostatitis/abscess for presenting back to the hospital with fever chest pain some shortness of breath concerning for possible failure of oral ciprofloxacin therapy. On today's evaluation that is 01/02/2022, the patient remains to be afebrile, the patient is feeling better the patient denies chest pain shortness of breath currently on room air, the patient denies pelvic pain and no burning or frequency of urine or diarrhea Objective - Vital Signs Vital signs: Vital Signs Temp 98.3 F 01/02/22 12:00 Pulse 94 01/02/22 12:00 Resp 16 01/02/22 12:00 BP 107/60 01/02/22 12:00 Pulse Ox 93 L 01/02/22 12:00 Intake & Output 01/01/22 01/02/22 01/02/22 18:59 06:59 18:59 Other: # Voids 2 1 - Exam GENERAL DESCRIPTION: Middle-aged male lying in bed in no distress RESPIRATORY SYSTEM: Unlabored breathing , decreased breath sounds at bases HEART: S1 S2 regular rate and rhythm , ABDOMEN: Soft , no tenderness EXTREMITIES: No edema feet - Labs CBC & Chem 7: 01/02/22 07:41 12/31/21 03:08 Labs: Abnormal Lab Results - Last 24 Hours (Table) 01/01/22 01/01/22 01/02/22 Range/Units 16:21 20:03 06:13 POC Glucose (mg/dL) 151 H 287 H 144 H (75-99) mg/dL 01/02/22 Range/Units 11:30 POC Glucose (mg/dL) 263 H (75-99) mg/dL Microbiology - Last 24 Hours (Table) 12/31/21 03:08 Blood Culture - Preliminary Blood No Growth after 48 hours 12/31/21 00:23 Urine Culture - Final Urine,Voided Assessment and Plan (1) Sepsis Status: Acute Code(s): A41.9 - SEPSIS, UNSPECIFIED ORGANISM SNOMED Code(s): 42045424 Plan: 1patient presented to hospital with sepsis and this did have fever elevated white count tachycardia source likely prostatic abscess in this patient failing outpatient oral Cipro therapy high clinical suspicious for quinolone resistant pathogen. 2amoxicillin allergy as a child with no clear reaction clinical doubt anaphylaxis, patient did tolerated Rocephin without any problem 3-urology recommended against drainage of the abscess on the basis of clinical improvement on the CT 4-Patient seems to have clinically improved with Rocephin 2 g daily and plan is to finish therapy with oral Ceftin 500 mg twice a day for 2 weeks prescription was sent to the pharmacy and close outpatient follow-up Time with Patient: Less than 30
--- NOTE | 2022-01-02 16:57 | P.DS ---
Providers Date of admission: 12/30/21 23:13 Expected date of discharge: 01/02/22 Attending physician: Segundo Martinez MD Consults: 12/30/21 23:14 Consult Physician Routine Consulting Provider: Jeanne Quinones Consult Reason/Comments: chf Do you want consulting provider notified?: Yes 12/31/21 03:13 Consult Physician Routine Consulting Provider: Deondre Vera Consult Reason/Comments: prostatitis Do you want consulting provider notified?: Yes, Notify in am 12/31/21 03:14 Consult Physician Routine Consulting Provider: Felipe Gipson Consult Reason/Comments: prostatits Do you want consulting provider notified?: Yes, Notify in am Primary care physician: [facility] Hospital Course: 46 year old male with severe systolic CHF, h/o venous thromboembolism, recent diagnosis of prostatitis discharged < 1 week ago on long course of cipro. He is returning due to chest pain , palpitation , worsening urinary symptoms and pelvic pain, fevers, and chills. He does not feel that he was getting better, despite compliance with his antibiotics and meds. he is reporting dizziness, lightheadedness and SOB. he has ischemic cardiomyopathy due to recent NV s/p stents. In the ED, he was found to have sepsis with lactic acidosis, EKG showed sinus tachy, recent admission blood cultures remain negative. Patient was admitted for further management. He was started on IV Zosyn and cultures were obtained. Urine culture was negative. Blood culture was negative at 48 hours. Patient also had a pelvic CT which showed inferior midline prostatic abscess but decreased in size compared to previous CT. Urology was consulted and recommended continuing with antibiotics and no surgical intervention. Infectious disease was consulted and recommended switching Zosyn to Rocephin 2 g IV daily. He was advised to discharged on Ceftin 500 mg by mouth twice a day for 2 weeks. Cardiology was consulted with regard to his chest pain and acute coronary syndrome was ruled out. Echocardiogram was done which showed AICD in place, EF of 20-25% with hypokinetic mid anterior/apical anterior/apical lateral/apical inferior/apical septal LV wall. Patient preferred to undergo stress test in the outpatient setting which was agreeable by cardiology. Patient was seen and examined on 01/02/2022. He reported a considerable improvement in his pelvic pain. Patient was requesting to be discharged. He was discharged with Ceftin 500 mg by mouth twice a day for 14 days. Aspirin was also added to his medication regimen. He was advised to discontinue ciprofloxacin. He was advised to follow-up with his php developer within 1 week. Follow-up with infectious disease in 2 week. Follow-up with urology in one week. Follow-up with PCP within 2 days of discharge. Patient verbalized un derstanding of the plan. This discharge took greater than 45 minutes to complete. General: [non toxic], [no distress], [appears at stated age] Derm: [warm], [dry] Head: [atraumatic], [normocephalic], [symmetric] Eyes: [EOMI], [no lid lag], [anicteric sclera] Mouth: [no lip lesion], [mucus membranes moist] Cardiovascular: [S1S2 reg], [no murmur] Lungs: [CTA bilateral], [no rhonchi, no rales] , [no accessory muscle use] Abdominal: [soft], [ nontender to palpation], [no guarding], [no appreciable organomegaly] Ext: [no gross muscle atrophy], [no edema], [no contractures] Psych: [Alert], [oriented], [appropriate affect] Assessment: #1 sepsis secondary to prostatic abscess #2 lactic acidosis secondary to above resolved #3 chest pain rule out ACS #4 diabetes mellitus type 2 #5 atrial fibrillation on anticoagulation Pertinent Studies: Pelvic CT, echocardiogram Patient Condition at Discharge: Good Plan - Discharge Summary Discharge Rx Participant: No New Discharge Prescriptions: New Cefuroxime Axetil [Ceftin] 500 mg PO BID 14 Days #28 tab Aspirin 81 mg PO DAILY Continue Insulin Detemir (Levemir) [Levemir] 46 unit SQ HS Atorvastatin [Lipitor] 80 mg PO HS glipiZIDE [Glucotrol] 10 mg PO BID-W/MEALS Rivaroxaban [Xarelto] 20 mg PO HS carvediloL [Coreg*] 12.5 mg PO BID Spironolactone 50 mg PO DAILY Omeprazole 40 mg PO HS metFORMIN HCL [Glucophage] 1,000 mg PO BID-W/MEALS Acetaminophen Tab [Tylenol] 650 mg PO Q6HR PRN tab PRN Reason: Mild Pain Or Fever > 100.5 Discontinued Ciprofloxacin HCl 500 mg PO BID #120 tablet Discharge Medication List Atorvastatin [Lipitor] 80 mg PO HS 12/15/14 [History] Insulin Detemir (Levemir) [Levemir] 46 unit SQ HS 12/15/14 [History] Omeprazole 40 mg PO HS 02/10/19 [History] Rivaroxaban [Xarelto] 20 mg PO HS 02/10/19 [History] Spironolactone 50 mg PO DAILY 02/10/19 [History] carvediloL [Coreg*] 12.5 mg PO BID 02/10/19 [History] glipiZIDE [Glucotrol] 10 mg PO BID-W/MEALS 02/10/19 [History] metFORMIN HCL [Glucophage] 1,000 mg PO BID-W/MEALS 12/20/21 [History] Acetaminophen Tab [Tylenol] 650 mg PO Q6HR PRN tab 12/23/21 [Rx] Aspirin 81 mg PO DAILY 01/02/22 [Rx] Cefuroxime Axetil [Ceftin] 500 mg PO BID 14 Days #28 tab 01/02/22 [Rx] Follow up Appointment(s)/Referral(s): Danielle Moraes MD [REFERRING] - 1 Week (office closed please schedule tuesday. ) Felipe Gipson MD [STAFF PHYSICIAN] - 2 Weeks (office closed please schedule tuesday. ) Deondre Vera MD [STAFF PHYSICIAN] - 1 Week (office closed please schedule tuesday. ) Ben Beltran [Primary Care Provider] - 1-2 days (office closed please schedule tuesday. ) Patient Instructions/Handouts: Angina (DC), Prostatitis (DC) Activity/Diet/Wound Care/Special Instructions: Diet: Low-salt Follow-up with your PCP within 1-2 days of discharge. Follow-up with Dr. Santos within 1 week of discharge. Follow up with Dr. Gipson within 2 weeks of discharge. Follow up with Dr. Vera within 1 week of discharge. Come back to the ED for worsening fever greater than 100.4 Fahrenheit, abdominal/pelvic pain, intractable nausea and vomiting. Discharge Disposition: HOME SELF-CARE
== END 2022-01-02 15:30 | disposition home or self-care (01) | DRG 872 ==
LOC: EC 21:43 → 3SCARD 23:13
PROVIDERS: ADMIT Internal Medicine; ATTEND Internal Medicine
DX: A41.9 Sepsis, unspecified organism (principal); E87.2 Acidosis; I50.22 Chronic systolic (congestive) heart failure; N41.0 Acute prostatitis; N41.2 Abscess of prostate; E11.40 Type 2 diabetes mellitus with diabetic neuropathy, unspecified; E78.5 Hyperlipidemia, unspecified; I11.0 Hypertensive heart disease with heart failure; R00.0 Tachycardia, unspecified; I25.10 Atherosclerotic heart disease of native coronary artery without angina pectoris; I25.2 Old myocardial infarction; I25.5 Ischemic cardiomyopathy; I48.0 Paroxysmal atrial fibrillation; Z20.822 Contact with and (suspected) exposure to COVID-19; Z79.01 Long term (current) use of anticoagulants; Z79.4 Long term (current) use of insulin; Z79.84 Long term (current) use of oral hypoglycemic drugs; Z79.899 Other long term (current) drug therapy; Z86.711 Personal history of pulmonary embolism; Z87.891 Personal history of nicotine dependence; Z95.5 Presence of coronary angioplasty implant and graft; Z95.810 Presence of automatic (implantable) cardiac defibrillator; Z86.718 Personal history of other venous thrombosis and embolism; Z88.0 Allergy status to penicillin; Z88.2 Allergy status to sulfonamides; Z88.8 Allergy status to other drugs, medicaments and biological substances
CPT/HCPCS: 36415; 71045; 72193; 80053; 81001; 83605; 83735; 83880; 84100; 84484; 85025; 85027; 85610; 85730; 87040; 87086; 87635; 93005; 93306; 94760; 96361; 96365; 96366; 96367; 96375; 99291

== ENCOUNTER → 2022-01-28 | Outpatient (CLI) | payer MEDICARE, OTHER ==
--- NOTE | 2022-01-29 08:13 | CT ---
EXAMINATION TYPE: CT chest wo con DATE OF EXAM: 01/28/2022 COMPARISON: None HISTORY: cough on and off x5 years CT DLP: 522.70 mGycm, Automated exposure control for dose reduction was used. CONTRAST: Performed injected with 0 mL of Isovue 300. TECHNIQUE: Axial images were obtained at 5 mm thick sections. Reconstructed images are reviewed on [employer] computer in the coronal plane. FINDINGS: Portion of the thyroid visualized is normal. No suspicious lung nodules or focal infiltrates are present. Tracheobronchial tree as visualized appe ars normal. No enlarged mediastinal or hilar adenopathy is evident. The ascending aorta diameter at the level o f the main pulmonary artery is 3.4 cm. The main pulmonary artery diameter at the bifurcation is 2.[address] sections are obtained through the upper abdomen. Abdomen is essentially unremarkable. IMPRESSIONS: 1. No acute pulmonary process.
== END | disposition home or self-care (01) ==
LOC: RADCTMAIN 16:33
PROVIDERS: ATTEND Family Medicine
DX: R05.9 Cough, unspecified (principal)
CPT/HCPCS: 71250

== ENCOUNTER → 2022-03-16 | Outpatient (CLI) | payer MEDICARE, OTHER | END | disposition home or self-care (01) | LOC: CPPFTMAIN 12:52 | PROVIDERS: ATTEND Family Medicine | DX: R05.9 Cough, unspecified (principal) | CPT/HCPCS: 94060; 94726; 94729 ==